=== PATIENT | male | born 1960 | race African-American/Black ===

== ENCOUNTER 2016-08-07 18:10 | Emergency (ER) | payer MEDICARE, OTHER ==
[~2016-08-07] VITALS: Ht 182.9 cm; Wt 91.0 kg
[~2016-08-07 18:10] MED LIST: DEPA500T; HALO0.5T; RISP3
[2016-08-07 18:13] VITALS: BP 130/80; PULSE 106; RESP 20; TEMP 97.8; O2SAT 95
== END 2016-08-07 18:50 | disposition left against medical advice (07) ==
LOC: NED 18:10
DX: F32.9 Major depressive disorder, single episode, unspecified (principal); Z53.21 Procedure and treatment not carried out due to patient leaving prior to being seen by health care provider
CPT/HCPCS: 99281

== ENCOUNTER 2016-08-25 16:55 | Inpatient (IN) | payer MEDICARE, OTHER ==
[~2016-08-25] VITALS: Ht 190.5 cm; Wt 83.5 kg
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
[2016-08-25 17:32] VITALS: BP 119/76; PULSE 86; RESP 16; TEMP 98.5; O2SAT 98
[2016-08-25 20:00] LABS: AUTOMATED NEUTROPHIL # 3.6 TH/MM3 (1.8-7.7); BASOPHIL # 0.1 TH/MM3 (0-0.2); BASOPHIL % 1.1 % (0.0-2.0); EOSINOPHIL # 0.2 TH/MM3 (0-0.4); EOSINOPHIL % 2.6 % (0.0-4.0); HEMATOCRIT 45.8 % (39.0-51.0); HEMO FLAGS DIFF FINAL; LYMPHOCYTE # 2.6 TH/MM3 (1.0-4.8); MEAN CELL VOLUME 94.7 FL (80.0-100.0); MEAN CORPUSCULAR HGB CONC 34.8 % (32.0-36.0); MONO % 8.1 % (0.0-8.0); NEUT % 51.2 % (16.0-70.0); PLATELET COUNT 261 TH/MM3 (150-450); RED BLOOD COUNT 4.83 MIL/MM3 (4.50-5.90); RED CELL DISTRIBUTION WIDTH 13.6 % (11.6-17.2); WHITE BLOOD COUNT 7.1 TH/MM3 (4.0-11.0)
[2016-08-25 20:00] LABS: AMPHETAMINE, URINE NEG (NEG); BARBITURATES, URINE NEG (NEG); COCAINE, URINE NEG (NEG)
[2016-08-25 20:08] LABS: ANION GAP 8 MEQ/L (5-15); AST (GOT) 21 U/L (15-37); BICARBONATE 25.9 MEQ/L (21.0-32.0); BLOOD UREA NITROGEN 18 MG/DL (7-18); CHLORIDE 105 MEQ/L (98-107); GLOMERULAR FILTRATION RATE 67 ML/MIN (>89); POTASSIUM 4.1 MEQ/L (3.5-5.1); SODIUM (NA) 139 MEQ/L (136-145)
[2016-08-25 20:11] LABS: ALKALINE PHOSPHATASE 86 U/L (45-117); ALT (GPT) 27 U/L (12-78); TOTAL BILIRUBIN ADULT 0.4 MG/DL (0.2-1.0)
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
[2016-08-25 22:33] VITALS: BP 115/60; PULSE 58; RESP 19; O2SAT 100
[2016-08-26 02:00] VITALS: RESP 19
[2016-08-26] MEDS ORDERED: diphenhydrAMINE HCL 50 MG/ML VIAL IM PRN (03:45)
[2016-08-26] MEDS ORDERED: LORazepam 2 MG/ML VIAL - age > 65 yrs IM PRN (03:45)
[2016-08-26] MEDS ORDERED: MAGNESIUM HYDROXIDE SUSP 30 ML CUP PO PRN (03:45)
[2016-08-26 05:28] VITALS: BP 112/61; PULSE 73; RESP 16; TEMP 98.1; O2SAT 99
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
[2016-08-26] MEDS: DIVALPROEX DR 500 MG TABEC PO SCH ×2 (11:46→19:53)
[2016-08-26] MEDS: risperiDONE 3 MG TAB PO SCH ×2 (11:46→19:53)
[2016-08-26 19:06] VITALS: BP 123/65; PULSE 88; RESP 18; TEMP 98.2; O2SAT 97
[2016-08-27 07:00] VITALS: BP 113/76; PULSE 80
[2016-08-27] MEDS: risperiDONE 3 MG TAB PO SCH ×2 (08:19→20:32)
[2016-08-27] MEDS: DIVALPROEX DR 500 MG TABEC PO SCH ×2 (08:19→20:32)
[2016-08-27 08:20] LABS: ANION GAP 7 MEQ/L (5-15); BICARBONATE 27.5 MEQ/L (21.0-32.0); BLOOD UREA NITROGEN 12 MG/DL (7-18); CHLORIDE 105 MEQ/L (98-107); GLOMERULAR FILTRATION RATE 84 ML/MIN (>89); HDL CHOLESTEROL 48.8 MG/DL (40.0-60.0); LDL CHOLESTEROL 81 MG/DL (0-99); POTASSIUM 4.8 MEQ/L (3.5-5.1); SODIUM (NA) 139 MEQ/L (136-145)
[2016-08-27] MEDS: ALUMINUM/MAGNESIUM/SIMETH 30 ML CUP PO PRN (08:50)
--- NOTE | 2016-08-27 11:57 | HHI.PYPN ---
Subjective Remarks Patient was seen and discussed with the staff nurse anesthetist. Sometimes patient becomes confused and paranoid and wants to be left alone or gets agitated but otherwise he is doing okay. He also wanted to smoke and I was advised that he cannot smoke I can give him some patch but he doesn't want the patch. No side effects were complained. He wants to go back to his mother. He is willing to sign voluntary and take the medication. Denied any suicidal and/or homicidal ideation or plan. Continue with the same treatment Review of Systems Except as stated in HPI: all other systems reviewed are Neg Psychiatric: COMPLAINS OF: Mood changes, Depression, Hallucinations, Delusions Objective Alert: Yes [place]: Person, Place Mood: Depressed Affect: Restricted Memory Intact: Recent (mildly impaired) Hallucinations: Auditory (occasionally talks to himself) Delusions: Yes Delusion Type: Paranoid Suicidal: Ideation (denies any suicidal ideation intentions or plan) Homicidal: Ideation (denies any homicidal plan) Insight/Judgement Limited Labs Test 08/27/16 07:14 Sodium Level 139 MEQ/L Potassium Level 4.8 MEQ/L Chloride Level 105 MEQ/L Carbon Dioxide Level 27.5 MEQ/L Anion Gap 7 MEQ/L Blood Urea Nitrogen 12 MG/DL Creatinine 1.10 MG/DL Estimat Glomerular Filtration 84 ML/MIN Rate Random Glucose 94 MG/DL Calcium Level 8.6 MG/DL Triglycerides Level 71 MG/DL Cholesterol Level 144 MG/DL LDL Cholesterol 81 MG/DL HDL Cholesterol 48.8 MG/DL Cholesterol/HDL Ratio 2.95 RATIO Vitals/IOs Vital Signs Date Time Temp Pulse Resp B/P Pulse Ox O2 Delivery O2 Flow Rate FiO2 08/27/16 07:00 80 113/76 08/26/16 19:06 98.2 18 97 08/26/16 02:00 Room Air Assessment & Plan Problem List: (1) Schizoaffective disorder ICD Code: F25.9 (2) schizophrenic disorder chronic paranoid type Assessment & Plan Estimated LOS: days Justification for Cont. Inpt. Monitoring of the medication and risk of decompensation Request HC Surrog/Guard Advoc?: No Problem Qualifiers (1) Schizoaffective disorder: Qualified Code: F25.8 - Other schizoaffective disorders Lyndon Tipton MD Aug 27, 2016 11:57
[2016-08-27 16:54] LABS: HEMOGLOBIN A1a 1.1 %; HEMOGLOBIN A1b 0.9 %; HEMOGLOBIN Ao 84.8 %; HEMOGLOBIN F 1.3 %; HEMOGLOBIN LA1C 1.9 %; HEMOGLOBIN P3 3.6 %
[2016-08-27 18:03] VITALS: BP 105/57; PULSE 83; RESP 18; TEMP 98.7; O2SAT 97
[2016-08-28 05:22] VITALS: BP 150/75; PULSE 120; RESP 18; TEMP 98.3; O2SAT 96
[2016-08-28] MEDS: risperiDONE 3 MG TAB PO SCH (08:41)
[2016-08-28] MEDS: DIVALPROEX DR 500 MG TABEC PO SCH ×2 (08:41→20:28)
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
[2016-08-28] MEDS ORDERED: LORazepam 2 MG TAB PO PRN (12:30)
[2016-08-28] MEDS ORDERED: LORazepam 1 MG TAB PO PRN (12:30)
[2016-08-28] MEDS ORDERED: LORazepam 2 MG/ML VIAL IV PUSH PRN ×4 (12:30)
[2016-08-28] MEDS ORDERED: FLUMAZENIL 0.5 MG/5 ML VIAL IV PUSH PRN (12:30)
[2016-08-28 18:14] VITALS: BP 142/70; PULSE 76; RESP 18; TEMP 98.1; O2SAT 98
[2016-08-28] MEDS: risperiDONE 1 MG TAB PO SCH (20:29)
[2016-08-29 05:47] VITALS: BP 111/64; PULSE 101; RESP 18; TEMP 98.2; O2SAT 97
[2016-08-29] MEDS: risperiDONE 1 MG TAB PO SCH ×2 (09:23→20:58)
[2016-08-29] MEDS: FOLIC ACID 1 MG TAB PO SCH (09:23)
[2016-08-29] MEDS: DIVALPROEX DR 500 MG TABEC PO SCH ×2 (09:23→20:57)
[2016-08-29] MEDS: THIAMINE HCL 100 MG TAB PO SCH (09:23)
[2016-08-29] MEDS: ALUMINUM/MAGNESIUM/SIMETH 30 ML CUP PO PRN ×2 (09:24→21:00)
--- NOTE | 2016-08-29 11:24 | HHI.PYPN ---
Subjective Remarks Patient seen and examined with counselor. Chart reviewed. Case discussed with counselor, nursing staff and occupational therapist in treatment team. Per nursing staff, patient has been no behavioral problem on the inpatient unit. On my examination today, the patient complains chiefly of calluses on the balls of both feet which he finds somewhat painful especially while walking. His thought process is a little disorganized and when asked about audiovisual hallucinations he insists that he is only "thinking aloud." Some random statements about "Gwen Patel" that don't seem connected with our conversation otherwise. Overall, quite calm and pleasant. Denies side effects from medications. Review of Systems ROS Limitations: Poor Historian Other Except as above, no physical complaints. Objective Alert: Yes [place]: Person, Place Mood: Calm Affect: Euthymic Memory Intact: Comment (not formally assessed) Hallucinations: Other (Denies AVH) Delusions: No Delusion Type: Other (No stephanie delusions.) Suicidal: Ideation (Denies SI) Homicidal: Ideation (Denies HI) Insight/Judgement Poor Remarks TP a little disorganized. Speech somewhat rambling. No new abnormal motor movements noted. Labs Labs reviewed. No new labs. Vitals/IOs Vital Signs Date Time Temp Pulse Resp B/P Pulse Ox O2 Delivery O2 Flow Rate FiO2 08/29/16 05:47 98.2 101 18 111/64 97 08/26/16 02:00 Room Air Assessment & Plan Problem List: (1) Schizophrenia ICD Code: F20.9 Assessment & Plan Continue Risperdal 4mg BID as patient seems to be doing well with this medication. Could consider Consta or Sustenna. Continue Depakote as ordered and plan to check a level Thursday morning. Consult to podiatry for patient's complaints about his feet. Continue other medications and care as ordered. Justification for Cont. Inpt. Monitoring for impairments in safety. Discharge Planning To be determined. Unlikely that patient can return home but unclear what other placement options there are. Also unclear is whether there are active legal issues related to his presentation that would present a barrier to alternative placement. I will ask the counselor to work on formulating discharge options. Request HC Surrog/Guard Advoc?: No Problem Qualifiers (1) Schizophrenia: Qualified Code: F20.0 - Paranoid schizophrenia Zach Valera MD Aug 29, 2016 11:24
--- NOTE | 2016-08-29 17:14 | PD.POD ---
Subjective Podiatric Problems calluses on feet Objective Vital Signs Vital Signs Date Time Temp Pulse Resp B/P Pulse Ox O2 Delivery O2 Flow Rate FiO2 08/29/16 05:47 98.2 101 18 111/64 97 08/28/16 18:14 98.1 76 18 142/70 98 Coded Allergies: No Known Allergies (Verified , 08/07/16) Assessment & Plan A/P These routine foot care issues are not emergent, and are not a service offered as an inpatient. Patient is welcome to follow up in our clinic as needed upon d/ c. Wilber Chavez DPM Aug 29, 2016 17:14
[2016-08-29 17:57] VITALS: BP 123/73; PULSE 110; RESP 18; TEMP 98.7; O2SAT 97
[2016-08-30 05:57] VITALS: BP 110/75; PULSE 87; RESP 18; TEMP 98.3; O2SAT 97
[2016-08-30] MEDS: FOLIC ACID 1 MG TAB PO SCH (08:46)
[2016-08-30] MEDS: risperiDONE 1 MG TAB PO SCH ×2 (08:46→20:51)
[2016-08-30] MEDS: DIVALPROEX DR 500 MG TABEC PO SCH ×2 (08:46→20:51)
[2016-08-30] MEDS: THIAMINE HCL 100 MG TAB PO SCH (08:46)
--- NOTE | 2016-08-30 15:40 | HHI.PYPN ---
Subjective Remarks Patient was seen and case discussed with nursing. Patient remains disheveled and flat. He is pleasant with interview. Compliant with his medications. Perseverative on painful calluses. Per nursing a podiatry consult is pending. Denies psychotic symptoms. Behaving well on the unit Objective Alert: Yes [place]: Person, Place Mood: Calm Affect: Blunted Memory Intact: Comment (not formally assessed) Hallucinations: Other (Denies AVH) Delusions: No Delusion Type: Other (No stephanie delusions.) Suicidal: Ideation (Denies SI) Homicidal: Ideation (Denies HI) Insight/Judgement Poor Vitals/IOs Vital Signs Date Time Temp Pulse Resp B/P Pulse Ox O2 Delivery O2 Flow Rate FiO2 08/30/16 05:57 98.3 87 18 110/75 97 Assessment & Plan Problem List: (1) Schizophrenia ICD Code: F20.9 Assessment & Plan Continue current treatment plan Justification for Cont. Inpt. Patient will decompensate in a less restrictive setting Request HC Surrog/Guard Advoc?: No Problem Qualifiers (1) Schizophrenia: Qualified Code: F20.0 - Paranoid schizophrenia Carlos Lombardi DO Aug 30, 2016 15:40
[2016-08-30 22:25] VITALS: BP 109/74; PULSE 97; RESP 19; TEMP 98; O2SAT 100
[2016-08-31 05:32] VITALS: BP 118/76; PULSE 100; RESP 18; TEMP 98.1; O2SAT 96
[2016-08-31] MEDS: ACETAMINOPHEN 325 MG TAB PO PRN ×2 (07:12→12:03)
[2016-08-31] MEDS: DIVALPROEX DR 500 MG TABEC PO SCH ×2 (08:58→21:15)
[2016-08-31] MEDS: FOLIC ACID 1 MG TAB PO SCH (08:58)
[2016-08-31] MEDS: risperiDONE 1 MG TAB PO SCH ×2 (08:58→21:15)
[2016-08-31] MEDS: THIAMINE HCL 100 MG TAB PO SCH (08:58)
--- NOTE | 2016-08-31 15:46 | HHI.PYPN ---
Subjective Remarks Patient was seen and case discussed with nursing. Patient is pleasant and cooperative with exam. He remains disheveled with poor insight into his admission. Largely seclusive to room. Nursing witnessed him with eyes closed talking to himself. Compliant with his medications. Continues to deny psychotic symptoms Objective Alert: Yes [place]: Person, Place Mood: Calm Affect: Flat Memory Intact: Comment (not formally assessed) Hallucinations: Other (Denies AVH) Delusions: No Delusion Type: Other (could be responding to internal stimuli) Suicidal: Ideation (Denies SI) Homicidal: Ideation (Denies HI) Insight/Judgement Poor Vitals/IOs Vital Signs Date Time Temp Pulse Resp B/P Pulse Ox O2 Delivery O2 Flow Rate FiO2 08/31/16 05:32 98.1 100 18 118/76 96 Assessment & Plan Problem List: (1) Schizophrenia ICD Code: F20.9 Assessment & Plan Continue current treatment plan Justification for Cont. Inpt. Patient will decompensate in a less restrictive setting Request HC Surrog/Guard Advoc?: No Problem Qualifiers (1) Schizophrenia: Qualified Code: F20.0 - Paranoid schizophrenia Carlos Lombardi DO Aug 31, 2016 15:46
[2016-08-31 19:04] VITALS: BP 114/69; PULSE 94; RESP 18; TEMP 97.4; O2SAT 100
[2016-09-01 06:29] VITALS: BP 128/75; PULSE 117; RESP 18; TEMP 97.9; O2SAT 96
[2016-09-01] MEDS: DIVALPROEX DR 500 MG TABEC PO SCH ×2 (09:00→20:07)
[2016-09-01] MEDS: FOLIC ACID 1 MG TAB PO SCH (09:42)
[2016-09-01] MEDS: THIAMINE HCL 100 MG TAB PO SCH (09:42)
[2016-09-01] MEDS: risperiDONE 1 MG TAB PO SCH ×2 (09:42→20:07)
--- NOTE | 2016-09-01 10:00 | HHI.PYPN ---
Subjective Remarks Patient seen and examined with nurse. Chart reviewed. Case discussed with nursing staff reports patient remains internally stimulated but has been no behavioral problem. On my examination today, the patient continues to complain of his somewhat painful calluses. I do see that the licensed reactor operator has recommended outpatient follow-up for this. He denies any audiovisual hallucinations but does indeed remain a little internally preoccupied. 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 I'm trying to make a living. 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 Review of Systems ROS Limitations: Psychotic, Poor Historian Other No physical complaints today except as above Objective Alert: Yes [place]: Person, Place Mood: Happy Affect: Blunted Memory Intact: Comment (not formally assessed) Hallucinations: Other (denies audiovisual hallucinations but does appear a little internally preoccupied) Delusions: No Delusion Type: Other (some degree of grandiosity) Suicidal: Ideation (Denies SI) Homicidal: Ideation (Denies HI) Insight/Judgement Poor Remarks Thought process fairly linear. Speech a little bit rambling though. No motor abnormalities noted. Grooming and hygiene are fair. Labs Test 09/01/16 08:48 Ammonia 19 MCMOL/L Valproic Acid (Depakene) Level 60 MCG/ML Labs reviewed. Depakote level is within the therapeutic range and ammonia level is not elevated. Vitals/IOs Vital Signs Date Time Temp Pulse Resp B/P Pulse Ox O2 Delivery O2 Flow Rate FiO2 09/01/16 06:29 97.9 117 18 128/75 96 Ongoing tachycardia noted. Assessment & Plan Problem List: (1) Schizophrenia ICD Code: F20.9 Assessment & Plan No evidence of ongoing violence/aggression despite extended observation on the unit. Check EKG given tachycardia. If EKG okay, plan to initiate Risperdal Consta. Patient says Epsom salt soak helps his feet, and I have ordered this. Continue other medications and care as ordered. Justification for Cont. Inpt. Monitoring for impairment in safety; none noted so far. Discharge Planning I have asked counselor to reach out to family to assess whether they would have him home. He might do better with placement if feasible. Request HC Surrog/Guard Advoc?: No Problem Qualifiers (1) Schizophrenia: Qualified Code: F20.0 - Paranoid schizophrenia Zach Valera MD Sep 01, 2016 10:00
[2016-09-01] MEDS: ACETAMINOPHEN 325 MG TAB PO PRN (17:05)
[2016-09-01 18:07] VITALS: BP 121/69; PULSE 89; RESP 18; TEMP 98.4; O2SAT 98
[2016-09-01 19:52] VITALS: BP 121/69; PULSE 89; RESP 18; TEMP 98.4; O2SAT 98
[2016-09-01] MEDS: LORazepam 0.5 MG TAB age > 65 yrs PO PRN (20:07)
[2016-09-02 05:33] VITALS: BP 115/73; PULSE 102; RESP 18; TEMP 98.1; O2SAT 97
[2016-09-02] MEDS: DIVALPROEX DR 500 MG TABEC PO SCH ×2 (08:24→21:00)
[2016-09-02] MEDS: FOLIC ACID 1 MG TAB PO SCH (08:24)
[2016-09-02] MEDS: risperiDONE 1 MG TAB PO SCH ×2 (08:25→21:04)
[2016-09-02] MEDS: THIAMINE HCL 100 MG TAB PO SCH (08:25)
--- NOTE | 2016-09-02 11:46 | HHI.PYPN ---
Subjective Remarks Patient seen and examined with nurse. Chart reviewed. Case discussed with nurse, counselor and occupational therapist in treatment team. Per nursing staff, patient completed a right of release this morning. He has been medication compliant. Counselors reach out the patient's family, and apparently the plan is to move the patient's mother, with whom he had been residing, [place] live [place] other family and to sell her house. This would render the patient otherwise homeless, and there are apparently no family prepared to assume care of his case in the area. Per occupational therapist, patient is attending groups. On my examination today, the patient is perseverative on being discharged. It seems that he wants to smoke cigarettes chiefly. He is fairly irritable, and when I endeavored to inquire about psychiatric symptomatology he merely reiterates that he wants to go home. No evident side effects from medications. Review of Systems ROS Limitations: Psychotic, Poor Historian Other No physical complaints Objective Alert: Yes [place]: Person, Place Mood: Oppositional Affect: Restricted (dysphoric) Memory Intact: Comment (not formally assessed) Hallucinations: Other (no reported AVH but still appears somewhat internally preoccupied) Delusions: No Delusion Type: Other (no stephanie delusional material) Suicidal: Ideation (no SI) Homicidal: Ideation (no HI) Insight/Judgement Poor Remarks Thought process with some ongoing degree of thought disorganization. Speech is perseverative on discharge is noted above. No abnormal motor movements noted. Grooming and hygiene are fair at best. No signs of any withdrawal. Labs Labs reviewed. No new labs. EKG was read as sinus rhythm with a QTC of 371 ms. Vitals/IOs Vital Signs Date Time Temp Pulse Resp B/P Pulse Ox O2 Delivery O2 Flow Rate FiO2 09/02/16 05:33 98.1 102 18 115/73 97 Assessment & Plan Problem List: (1) Schizophrenia ICD Code: F20.9 Assessment & Plan Patient is demanding discharge today and has completed a right of release. However, collateral from family indicates that the patient would be without stable housing on discharge. This is a chronic patient with schizophrenia with extremely poor executive functioning. I do not believe that it would be a safe discharge to discharge him to [facility] [place] [facility], which would be the option presently. I will therefore initiated a petition for involuntary psychiatric hospitalization and consult for second. I will initiate long-acting injectable Risperdal Consta and continue oral supplementation is recommended. Continue other medications and care as ordered. Justification for Cont. Inpt. High risk for decompensation in a less restrictive environment. Discharge Planning Pending outcome of [place] hearing, we may plan for assisted living placement. Request HC Surrog/Guard Advoc?: No Problem Qualifiers (1) Schizophrenia: Qualified Code: F20.0 - Paranoid schizophrenia Zach Valera MD Sep 02, 2016 11:46
[2016-09-02] MEDS: NICOTINE 14 MG/24 HR PATCH TD SCH (11:54)
[2016-09-02] MEDS: risperiDONE EXT REL INJ 12.5 MG/2 ML VIAL IM SCH (12:00)
--- NOTE | 2016-09-02 14:53 | EKG ---
Date Performed: 09/01/2016 Time Performed: 14:03:53 PTAGE: 55 years EKG: Sinus rhythm POSSIBLE RIGHT ATRIAL ENLARGEMENT POSSIBLE RIGHT VENTRICULAR CONDUCTION DELAY Compared to prior trac ing no significant change BORDERLINE ECG PREVIOUS TRACING : 01/01/2006 14.57 DOCTOR: Jean Claude Sims Interpretating Date/Time 09/02/2016 14:50:14
[2016-09-02 17:30] VITALS: BP 122/74; PULSE 88; RESP 18; TEMP 97.2; O2SAT 98
[2016-09-03 06:08] VITALS: BP 146/78; PULSE 112; RESP 18; TEMP 97.2; O2SAT 98
[2016-09-03] MEDS: DIVALPROEX DR 500 MG TABEC PO SCH ×2 (08:18→20:38)
[2016-09-03] MEDS: risperiDONE 1 MG TAB PO SCH ×2 (08:19→20:42)
[2016-09-03] MEDS: NICOTINE 14 MG/24 HR PATCH TD SCH (08:19)
[2016-09-03] MEDS: THIAMINE HCL 100 MG TAB PO SCH (08:19)
[2016-09-03] MEDS: LORazepam 0.5 MG TAB age > 65 yrs PO PRN (08:19)
[2016-09-03] MEDS: FOLIC ACID 1 MG TAB PO SCH (08:19)
[2016-09-03] MEDS: REMOVE OLD PATCH TD SCH (09:00)
--- NOTE | 2016-09-03 11:15 | HHI.PYPN ---
Subjective Remarks Patient seen and examined with nurse. Chart reviewed. Case discussed with nursing staff who reports patient remains somewhat disorganized but is compliant with medications. On my examination today, the patient is irritable. He insists that he is not experiencing audiovisual hallucinations although he does appear internally preoccupied. He he says that instead "I just think a lot." He is perseverative on soaking his feet. He says that he plans to file a writ of [place]. He has written a latin phrase, "rocio irritatus irritatum legem videt" and gives the translation as something like "the law doesn't see the irritating man." Unclear where he came by this phrase. Denies side effects from medications. Review of Systems ROS Limitations: Psychotic, Poor Historian Other No physical complaints today. Objective Alert: Yes [place]: Person, Place Mood: Other (irritated) Affect: Restricted (dysphoric) Memory Intact: Comment (not formally assessed) Hallucinations: Other (Denies AVH but continues to appear int stim) Delusions: No Delusion Type: Other (no stephanie delusional material) Suicidal: Ideation (no SI) Homicidal: Ideation (no HI) Insight/Judgement Poor Remarks No abnormal motor movements noted. Thought process perhaps a little more linear. Labs Labs reviewed. No new labs. Vitals/IOs Vital Signs Date Time Temp Pulse Resp B/P Pulse Ox O2 Delivery O2 Flow Rate FiO2 09/03/16 06:08 97.2 112 18 146/78 98 Assessment & Plan Problem List: (1) Schizophrenia ICD Code: F20.9 Assessment & Plan Patient to receive Risperdal Consta today. Continue oral Risperdal supplementation. Continue Depakote as ordered. Continue monitoring on the inpatient unit. Continue other medications and care as ordered. Justification for Cont. Inpt. Impairments in reality construction. Concern for impairments in safety. High risk for decompensation in a less restrictive environment. Discharge Planning Pending outcome a [place] tomorrow, patient will likely require placement. Optimistically, this would take 1-2 weeks to achieve. Request HC Surrog/Guard Advoc?: No Problem Qualifiers (1) Schizophrenia: Qualified Code: F20.0 - Paranoid schizophrenia Zach Valera MD Sep 03, 2016 11:15
[2016-09-03] MEDS: risperiDONE EXT REL INJ 12.5 MG/2 ML VIAL IM SCH (12:35)
[2016-09-04 05:30] VITALS: BP 140/55; PULSE 99; RESP 18; TEMP 98.8; O2SAT 98
[2016-09-04] MEDS: DIVALPROEX DR 500 MG TABEC PO SCH ×2 (07:56→20:28)
[2016-09-04] MEDS: THIAMINE HCL 100 MG TAB PO SCH (07:56)
[2016-09-04] MEDS: FOLIC ACID 1 MG TAB PO SCH (07:56)
[2016-09-04] MEDS: NICOTINE 14 MG/24 HR PATCH TD SCH (07:56)
[2016-09-04] MEDS: MAGNESIUM SULFATE TOPICAL PRN (07:57)
[2016-09-04] MEDS: risperiDONE 1 MG TAB PO SCH ×2 (07:57→20:28)
[2016-09-04] MEDS: REMOVE OLD PATCH TD SCH (09:00)
--- NOTE | 2016-09-04 11:34 | HHI.PYPN ---
Subjective Remarks Patient seen and examined. Chart reviewed. Case discussed with nursing staff who reports patient is more or less unchanged today. Nursing staff reports that they got the Epsom salt bath ready for the patient to soak his feet but the patient said that he didn't want to do so anymore. On my examination today , the patient asks to do precisely this first thing. He is somewhat rambling regarding a baby and somehow connects this to smoking. Makes some allusion to his girlfriend. Seems overall more disorganized today versus yesterday. No evidence side effects from medications though. Review of Systems ROS Limitations: Psychotic, Poor Historian Other No physical complaints today Objective Alert: Yes [place]: Person, Place Mood: Calm Affect: Blunted Memory Intact: Comment (not formally assessed) Hallucinations: Other (no AVH reported) Delusions: No Delusion Type: Other (no delusions) Suicidal: Ideation (no SI) Homicidal: Ideation (no HI) Insight/Judgement Poor Remarks Thought process disorganized. Speech rambling. No new abnormal motor movements noted. Labs Labs reviewed. No new labs. Vitals/IOs Vital Signs Date Time Temp Pulse Resp B/P Pulse Ox O2 Delivery O2 Flow Rate FiO2 09/04/16 05:30 98.8 99 18 140/55 98 Assessment & Plan Problem List: (1) Schizophrenia ICD Code: F20.9 Assessment & Plan Estimated LOS: days patient seems to be more disorganized today after a few days of improvement. Unclear if this is some day-to-day variation in the setting of a larger trajectory of improvement. I will hold off on making medication adjustments at this time, but if he remains so symptomatic tomorrow, we may need to consider additional psychotropic agents such as addition of a different antipsychotic. Continue to monitor on the inpatient unit. Continue other medications and care as ordered. Justification for Cont. Inpt. Impairment in reality construction. High risk for decompensation in a less restrictive environment. Discharge Planning Patient will likely require placement. Request HC Surrog/Guard Advoc?: No Problem Qualifiers (1) Schizophrenia: Qualified Code: F20.0 - Paranoid schizophrenia Zach Valera MD Sep 04, 2016 11:34
[2016-09-04] MEDS: ALUMINUM/MAGNESIUM/SIMETH 30 ML CUP PO PRN ×2 (12:52→18:22)
[2016-09-04 15:15] VITALS: BP 123/81; PULSE 88; RESP 18; TEMP 87.6; O2SAT 99
[2016-09-04] MEDS: LORazepam 0.5 MG TAB age > 65 yrs PO PRN (20:29)
[2016-09-04] MEDS: ACETAMINOPHEN 325 MG TAB PO PRN (20:30)
[2016-09-05 05:37] VITALS: BP 137/65; PULSE 91; RESP 18; TEMP 98.1; O2SAT 96
[2016-09-05] MEDS: risperiDONE 1 MG TAB PO SCH ×2 (07:31→20:13)
[2016-09-05] MEDS: FOLIC ACID 1 MG TAB PO SCH (07:32)
[2016-09-05] MEDS: THIAMINE HCL 100 MG TAB PO SCH (07:32)
[2016-09-05] MEDS: NICOTINE 14 MG/24 HR PATCH TD SCH (09:00)
[2016-09-05] MEDS: REMOVE OLD PATCH TD SCH (09:00)
[2016-09-05] MEDS: DIVALPROEX DR 500 MG TABEC PO SCH ×2 (09:00→20:13)
--- NOTE | 2016-09-05 10:19 | HHI.PYPN ---
Subjective Remarks Patient seen and examined with nurse. Chart reviewed. Case discussed with nursing staff who reports patient remains fairly disorganized and rambling. Patient's mother apparently called the unit yesterday but the patient refused to speak with her even though she was hoping to convey the news that some more distant relation had . On my examination today, the patient remains rambling and disorganized. He is discharge focused. He denies audiovisual hallucinations but appears internally preoccupied. He is fixated on being retained in the hospital after he had signed in voluntarily. I endeavored to explain to him the right of release and subsequent petition for involuntary psychiatric hospitalization, but his thought process is too disorganized to comprehend. 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 HMO. HMO you. 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 Review of Systems ROS Limitations: Psychotic, Poor Historian Other No physical complaints today. Objective Alert: Yes [place]: Person, Place Mood: Agitated, Anxious Affect: Restricted (dysphoric) Memory Intact: Comment (not formally assessed) Hallucinations: Other (Denies AVH but appears int stim) Delusions: Yes Delusion Type: Grandiose, Paranoid Suicidal: Ideation (none) Homicidal: Ideation (none) Insight/Judgement Poor Remarks Thought process disorganized. Speech rambling. No motor abnormalities noted. Nursing staff has brought to my attention some redness in the right eye, which I note on my examination today. Labs Labs reviewed. No new labs. Vitals/IOs Vital Signs Date Time Temp Pulse Resp B/P Pulse Ox O2 Delivery O2 Flow Rate FiO2 09/05/16 05:37 98.1 91 18 137/65 96 Assessment & Plan Problem List: (1) Schizophrenia ICD Code: F20.9 Assessment & Plan Patient once again presents as disorganized and more psychotic than he had in previous days. Covert med non-adherence is not suspected. Patient has received a low-dose of Consta, but I do wonder if he might not do better with a different antipsychotic. I will taper oral Risperdal slightly and add low-dose Zyprexa at HS. If patient seems improved, please consider continuing this cross -taper over the weekend. I will ask the hospitalist to evaluate pt's eye. Continue other medications and care as ordered. Justification for Cont. Inpt. Interval worsening in patient's condition. Impairment in reality construction. Medication changes in process. High risk for decompensation in a less restrictive environment. Discharge Planning Pending psychiatric stabilization. Plan presently is for placement pending outcome of [place] next week as the patient himself is resistant to the idea. Request HC Surrog/Guard Advoc?: No Problem Qualifiers (1) Schizophrenia: Qualified Code: F20.0 - Paranoid schizophrenia Zach Valera MD Sep 05, 2016 10:19
[2016-09-05 15:30] VITALS: BP 113/55; PULSE 70; RESP 16; TEMP 97.9; O2SAT 96
[2016-09-05] MEDS: OLANZapine 2.5 MG TAB PO SCH (20:13)
[2016-09-06 05:35] VITALS: BP 117/74; PULSE 100; RESP 18; TEMP 98.7; O2SAT 97
[2016-09-06] MEDS: DIVALPROEX DR 500 MG TABEC PO SCH ×2 (09:01→20:31)
[2016-09-06] MEDS: FOLIC ACID 1 MG TAB PO SCH (09:01)
[2016-09-06] MEDS: THIAMINE HCL 100 MG TAB PO SCH (09:01)
[2016-09-06] MEDS: risperiDONE 1 MG TAB PO SCH ×2 (09:01→20:31)
[2016-09-06] MEDS: ALUMINUM/MAGNESIUM/SIMETH 30 ML CUP PO PRN ×2 (09:02→21:31)
--- NOTE | 2016-09-06 16:34 | HHI.PYPN ---
Subjective Remarks Pt seen and discussed with staff. Pt remains disorganized and delusional. 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 Staff reports that pt has been engaging in bizarre behavior on unit. He states that he is feeling "Advantageous. I'm excelling!" when author inquired about his mood. He is compliant with medications. No SI/HI. Objective Alert: Yes [place]: Person, Place, Date ("thursday") Mood: Other (euphoric) Affect: Labile Memory Intact: Comment (not formally assessed) Hallucinations: Other (prominent internal stimulation.) Delusions: Yes Delusion Type: Grandiose, Paranoid Suicidal: Ideation (none) Homicidal: Ideation (none) Insight/Judgement poor Vitals/IOs Vital Signs Date Time Temp Pulse Resp B/P Pulse Ox O2 Delivery O2 Flow Rate FiO2 09/06/16 05:35 98.7 100 18 117/74 97 Assessment & Plan Problem List: (1) Schizophrenia ICD Code: F20.9 Assessment & Plan Continue current tx plan. Estimated LOS: days Justification for Cont. Inpt. impairments in reality construction and self care. Request HC Surrog/Guard Advoc?: No Problem Qualifiers (1) Schizophrenia: Qualified Code: F20.0 - Paranoid schizophrenia Parul Erazo MD Sep 06, 2016 16:33
[2016-09-06 17:30] VITALS: BP 109/70; PULSE 96; RESP 18; TEMP 98.5; O2SAT 96
[2016-09-06] MEDS: OLANZapine 2.5 MG TAB PO SCH (20:31)
[2016-09-07 05:41] VITALS: BP 144/80; PULSE 95; RESP 17; TEMP 98.7
[2016-09-07] MEDS: DIVALPROEX DR 500 MG TABEC PO SCH ×2 (09:36→20:33)
[2016-09-07] MEDS: THIAMINE HCL 100 MG TAB PO SCH (09:36)
[2016-09-07] MEDS: risperiDONE 1 MG TAB PO SCH ×2 (09:36→20:33)
[2016-09-07] MEDS: FOLIC ACID 1 MG TAB PO SCH (09:36)
--- NOTE | 2016-09-07 13:18 | HHI.PYPN ---
Subjective Remarks Pt seen and discussed with staff. Pt remains delusional and disorganized in behaviors and thought process. He is compliant with medications and denies side effects. No SI/HI. Objective Alert: Yes [place]: Person, Place, Date ("thursday") Mood: Calm Affect: Restricted Memory Intact: Comment (fair) Hallucinations: Other (prominent internal stimulation.) Delusions: Yes Delusion Type: Grandiose, Paranoid Suicidal: Ideation (none) Homicidal: Ideation (none) Insight/Judgement poor Remarks loose associations Vitals/IOs Vital Signs Date Time Temp Pulse Resp B/P Pulse Ox O2 Delivery O2 Flow Rate FiO2 09/07/16 05:41 98.7 95 17 144/80 09/06/16 17:30 96 Assessment & Plan Problem List: (1) Schizophrenia ICD Code: F20.9 Assessment & Plan Continue current tx plan. Estimated LOS: days Justification for Cont. Inpt. impairments in reality construction, self-care and social functioning Request HC Surrog/Guard Advoc?: No Problem Qualifiers (1) Schizophrenia: Qualified Code: F20.0 - Paranoid schizophrenia Parul Erazo MD Sep 07, 2016 13:18
[2016-09-07 17:13] VITALS: BP 118/73; PULSE 85; RESP 18; TEMP 98.5; O2SAT 99
[2016-09-07] MEDS: OLANZapine 2.5 MG TAB PO SCH (20:33)
[2016-09-07] MEDS: ALUMINUM/MAGNESIUM/SIMETH 30 ML CUP PO PRN (20:35)
[2016-09-07] MEDS: ACETAMINOPHEN 325 MG TAB PO PRN (20:35)
[2016-09-08 05:55] VITALS: BP 113/61; PULSE 80; RESP 18; TEMP 97.8; O2SAT 96
[2016-09-08] MEDS: THIAMINE HCL 100 MG TAB PO SCH (09:11)
[2016-09-08] MEDS: DIVALPROEX DR 500 MG TABEC PO SCH ×2 (09:11→20:55)
[2016-09-08] MEDS: risperiDONE 1 MG TAB PO SCH ×2 (09:12→20:55)
[2016-09-08] MEDS: FOLIC ACID 1 MG TAB PO SCH (09:12)
--- NOTE | 2016-09-08 12:26 | HHI.PYPN ---
Subjective Remarks Patient seen and examined with nurse. Chart reviewed. Case discussed with nurse, counselor an occupational therapist and groups. Per nursing staff, patient is rambling but pleasant. Occupational therapist notes the patient attended some groups but doesn't really socialize. On my examination today, patient presents as disorganized. From what I can gather, his foot pain has improved with the Epsom salt soaks I have ordered. He is now asking for " coffee and Mylanta for my heart murmur [perhaps he means heart burn?]." Denies side effects from medications. Calm and pleasant on exam. Review of Systems ROS Limitations: Poor Historian Other Except as above, no physical complaints today. Objective Alert: Yes [place]: Person, Place (at least) Mood: Calm Affect: Blunted Memory Intact: Comment (fair) Hallucinations: Other (Remains int stim) Delusions: Yes Delusion Type: Grandiose, Paranoid Suicidal: Ideation (No SI voiced) Homicidal: Ideation (No HI voiced) Insight/Judgement Poor Remarks Thought process disorganized. Speech rambling. No new motoric abnormalities noted. Grooming and hygiene are fair at best. Labs Labs reviewed. No new labs. Vitals/IOs Vital Signs Date Time Temp Pulse Resp B/P Pulse Ox O2 Delivery O2 Flow Rate FiO2 09/08/16 05:55 97.8 80 18 113/61 96 Assessment & Plan Problem List: (1) Schizophrenia ICD Code: F20.9 Assessment & Plan Continue cross taper of Risperdal to Zyprexa. Zyprexa 5 mg this evening and Risperdal 2 mg twice daily. Plan to continue cross taper in succeeding days as patient tolerates. Continue to monitor on the inpatient unit. Continue other medications and care as ordered. Justification for Cont. Inpt. Impairment in reality construction. Impairment in social function. Medication changes in process. High risk for decompensation in a less restrictive environment. Discharge Planning Likely will require placement pending outcome of [place]. Request HC Surrog/Guard Advoc?: No Problem Qualifiers (1) Schizophrenia: Qualified Code: F20.0 - Paranoid schizophrenia Zach Valera MD Sep 08, 2016 12:26
[2016-09-08] MEDS: MAGNESIUM SULFATE TOPICAL PRN (15:52)
[2016-09-08 17:50] VITALS: BP 135/69; PULSE 85; RESP 18; TEMP 98.2; O2SAT 98
[2016-09-08] MEDS: ALUMINUM/MAGNESIUM/SIMETH 30 ML CUP PO PRN (18:31)
[2016-09-08] MEDS: ACETAMINOPHEN 325 MG TAB PO PRN (20:56)
[2016-09-08] MEDS: diphenhydrAMINE HCL 50 MG CAP PO PRN (20:56)
[2016-09-08] MEDS: LORazepam 0.5 MG TAB age > 65 yrs PO PRN (20:56)
[2016-09-08] MEDS ORDERED: OLANZapine 2.5 MG TAB PO SCH (21:00)
[2016-09-09 05:43] VITALS: BP 123/70; PULSE 85; RESP 20; TEMP 98.6; O2SAT 95
[2016-09-09] MEDS: THIAMINE HCL 100 MG TAB PO SCH (08:32)
[2016-09-09] MEDS: risperiDONE 1 MG TAB PO SCH ×2 (08:32→20:17)
[2016-09-09] MEDS: FOLIC ACID 1 MG TAB PO SCH (08:32)
[2016-09-09] MEDS: DIVALPROEX DR 500 MG TABEC PO SCH ×2 (08:32→20:17)
--- NOTE | 2016-09-09 10:19 | HHI.PYPN ---
Subjective Remarks Patient seen and examined with nurse. Chart reviewed. Case discussed with nursing staff who reports patient is more or less unchanged. He remains internally stimulated per nurse. On my examination today, the patient denies AVH but does appear internally preoccupied. He says "I just think out loud." He is pleased that his foot pain is improved. Thought process remains disorganized. Mood is good. Denies side effects from medications. Says that medications are "excellent." Review of Systems ROS Limitations: Psychotic, Poor Historian Other No reported physical complaints. Objective Alert: Yes [place]: Person, Place Mood: Calm Affect: Euthymic Memory Intact: Comment (fair) Hallucinations: Other (internally preoccupied) Delusions: No Delusion Type: Other (no stephanie delusional material) Suicidal: Ideation (no SI) Homicidal: Ideation (no HI) Insight/Judgement Poor Remarks Thought process disorganized. Speech rambling. No new motoric abnormalities noted. Labs Labs reviewed. No new labs. Vitals/IOs Vital Signs Date Time Temp Pulse Resp B/P Pulse Ox O2 Delivery O2 Flow Rate FiO2 09/09/16 05:43 98.6 85 20 123/70 95 Assessment & Plan Problem List: (1) Schizophrenia ICD Code: F20.9 Assessment & Plan Titrate Zyprexa to 10 mg at bedtime. Continue Risperdal 2 mg twice daily with plans to continue to taper this medication as we titrate Zyprexa. Continue Depakote as ordered. Continue to monitor on the inpatient unit. Continue other medications and care as ordered. Justification for Cont. Inpt. Impairment in reality construction. Medication changes in process. High risk for decompensation in a less restrictive environment. Discharge Planning Pending outcome a [place]. Request HC Surrog/Guard Advoc?: No Problem Qualifiers (1) Schizophrenia: Qualified Code: F20.0 - Paranoid schizophrenia Zach Valera MD Sep 09, 2016 10:19
[2016-09-09] MEDS: MAGNESIUM SULFATE TOPICAL PRN (14:33)
[2016-09-09 17:20] VITALS: BP 172/100; PULSE 78
[2016-09-09 17:50] VITALS: BP 117/69; RESP 18; TEMP 98.6; O2SAT 100
[2016-09-09] MEDS ORDERED: OLANZapine 2.5 MG TAB PO SCH (21:00)
[2016-09-10 06:16] VITALS: BP 138/72; PULSE 85; RESP 18; TEMP 98; O2SAT 98
[2016-09-10] MEDS: DIVALPROEX DR 500 MG TABEC PO SCH ×2 (09:01→20:44)
[2016-09-10] MEDS: risperiDONE 1 MG TAB PO SCH ×2 (09:01→20:44)
[2016-09-10] MEDS: THIAMINE HCL 100 MG TAB PO SCH (09:01)
[2016-09-10] MEDS: FOLIC ACID 1 MG TAB PO SCH (09:01)
--- NOTE | 2016-09-10 09:53 | HHI.PYPN ---
Subjective Remarks Patient seen and examined with counselor. Chart reviewed. Case discussed with nursing staff who reports patient is medication compliant but disorganized. On my examination today, patient is calm and pleasant but does indeed remain disorganized and rambling in his speech. He remains somewhat internally preoccupied. He says that the medications are "working just excellent." Denies side effects from medications. Review of Systems ROS Limitations: Poor Historian Other No physical complaints today Objective Alert: Yes [place]: Person, Place Mood: Calm Affect: Euthymic Memory Intact: Comment (not formally assessed today) Hallucinations: Other (remains somewhat internally stimulated) Delusions: No Delusion Type: Other (no delusions) Suicidal: Ideation (no SI) Homicidal: Ideation (no HI) Insight/Judgement Poor Remarks Thought process somewhat disorganized. Speech a little rambling. No motor abnormalities noted. Labs Labs reviewed. No new labs. Vitals/IOs Vital Signs Date Time Temp Pulse Resp B/P Pulse Ox O2 Delivery O2 Flow Rate FiO2 09/10/16 06:16 98.0 85 18 138/72 98 Assessment & Plan Problem List: (1) Schizophrenia ICD Code: F20.9 Assessment & Plan Continue cross taper, Risperdal to Zyprexa. No definite benefit from Zyprexa noted yet. Continue to monitor on the inpatient unit. Continue other medications and care as ordered. Justification for Cont. Inpt. Medication changes in process. Risk for decompensation in a less restrictive environment. Discharge Planning Pending outcome a [place] tomorrow. Request HC Surrog/Guard Advoc?: No Problem Qualifiers (1) Schizophrenia: Qualified Code: F20.0 - Paranoid schizophrenia Zach Valera MD Sep 10, 2016 09:53
[2016-09-10] MEDS: ACETAMINOPHEN 325 MG TAB PO PRN (13:33)
[2016-09-10 18:18] VITALS: BP 119/65; PULSE 83; RESP 18; TEMP 98.5; O2SAT 83
[2016-09-10] MEDS: MAGNESIUM SULFATE TOPICAL PRN (18:24)
[2016-09-10] MEDS: ALUMINUM/MAGNESIUM/SIMETH 30 ML CUP PO PRN (20:45)
[2016-09-11] MEDS: ACETAMINOPHEN 325 MG TAB PO PRN ×3 (03:56→20:48)
[2016-09-11 05:54] VITALS: BP 124/57; PULSE 99; RESP 18; TEMP 98.4; O2SAT 96
[2016-09-11] MEDS: ALUMINUM/MAGNESIUM/SIMETH 30 ML CUP PO PRN ×2 (08:34→20:48)
[2016-09-11] MEDS: DIVALPROEX DR 500 MG TABEC PO SCH ×2 (08:45→20:45)
[2016-09-11] MEDS: risperiDONE 1 MG TAB PO SCH (08:45)
[2016-09-11] MEDS: FOLIC ACID 1 MG TAB PO SCH (08:45)
[2016-09-11] MEDS: THIAMINE HCL 100 MG TAB PO SCH (08:45)
[2016-09-11] MEDS: LORazepam 0.5 MG TAB age > 65 yrs PO PRN (11:14)
--- NOTE | 2016-09-11 13:47 | HHI.PYPN ---
Subjective Remarks Patient seen and case discussed with nursing staff. Per nursing staff, patient has poor eye contact and his sleep is poor. 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 He says that he has to be discharged because he needs to "get a 9-to-5 job." No reported side effects from medications. Review of Systems ROS Limitations: Psychotic, Poor Historian Other No physical complaints today Objective Alert: Yes [place]: Person, Place Mood: Calm Affect: Euthymic Memory Intact: Comment (Not assessed) Hallucinations: Other (Int stim) Delusions: Yes Delusion Type: Grandiose Suicidal: Ideation (no SI) Homicidal: Ideation (no HI) Insight/Judgement Poor Remarks Grooming and hygiene fair. Labs Labs reviewed. No new labs. Vitals/IOs Vital Signs Date Time Temp Pulse Resp B/P Pulse Ox O2 Delivery O2 Flow Rate FiO2 09/11/16 05:54 98.4 99 18 124/57 96 Assessment & Plan Problem List: (1) Schizophrenia ICD Code: F20.9 Assessment & Plan Complete cross-taper of Risperdal to Zyprexa: D/c Risperdal and titrate Zyprexa to 20mg qHS. Continue Depakote as ordered. Continue to monitor on the inpatient unit. Continue other medications and care as ordered. Patient was presented to the [place] act court and was retained by the court. Justification for Cont. Inpt. Impairment in reality construction. Medication changes. High risk for decompensation in a less restrictive environment. Discharge Planning The patient having been retained by the court, the plan will now be for placement. Case discussed with counselor. Request HC Surrog/Guard Advoc?: No Problem Qualifiers (1) Schizophrenia: Qualified Code: F20.0 - Paranoid schizophrenia Zach Valera MD Sep 11, 2016 13:47
[2016-09-11 17:25] VITALS: BP 116/69; PULSE 77; RESP 16; TEMP 98.3; O2SAT 100
[2016-09-11] MEDS: OLANZapine 10 MG TAB PO SCH (20:45)
[2016-09-12 06:12] VITALS: BP 112/66; PULSE 66; RESP 18; TEMP 97.9; O2SAT 99
[2016-09-12] MEDS: DIVALPROEX DR 500 MG TABEC PO SCH ×2 (08:59→20:49)
[2016-09-12] MEDS: FOLIC ACID 1 MG TAB PO SCH (08:59)
[2016-09-12] MEDS: ALUMINUM/MAGNESIUM/SIMETH 30 ML CUP PO PRN (08:59)
[2016-09-12] MEDS: THIAMINE HCL 100 MG TAB PO SCH (08:59)
--- NOTE | 2016-09-12 11:03 | HHI.PYPN ---
Subjective Remarks Remains grossly psychotic and unable to appreciate the nature of his psychosis. It is found talking to himself and obviously responding to internal stimuli. Review of Systems ROS Limitations: Clinical Condition Except as stated in HPI: all other systems reviewed are Neg Objective Alert: Yes [place]: Person, Place Mood: Anxious Affect: Restricted Memory Intact: Comment (Not assessed) Hallucinations: Other (Int stim) Delusions: Yes Delusion Type: Paranoid Suicidal: Ideation (no SI) Homicidal: Ideation (no HI) Insight/Judgement Markedly impaired. Vitals/IOs Vital Signs Date Time Temp Pulse Resp B/P Pulse Ox O2 Delivery O2 Flow Rate FiO2 09/12/16 06:12 97.9 66 18 112/66 99 Assessment & Plan Problem List: (1) Schizophrenia ICD Code: F20.9 Assessment & Plan Estimated LOS: 7 days medications are minimally effective thus far. Will evaluate for antipsychotic medication titration. Patient remains unable to care for himself Justification for Cont. Inpt. Unable to care for self. Request HC Surrog/Guard Advoc?: No Problem Qualifiers (1) Schizophrenia: Qualified Code: F20.0 - Paranoid schizophrenia Josue Moore MD Sep 12, 2016 11:03
[2016-09-12] MEDS: diphenhydrAMINE HCL 50 MG CAP PO PRN ×2 (13:48→19:58)
[2016-09-12] MEDS: LORazepam 0.5 MG TAB age > 65 yrs PO PRN (13:48)
[2016-09-12] MEDS: ACETAMINOPHEN 325 MG TAB PO PRN ×3 (17:00→23:22)
[2016-09-12 17:27] VITALS: BP 144/56; PULSE 86; RESP 18; TEMP 97.3; O2SAT 99
[2016-09-12] MEDS: OLANZapine 10 MG TAB PO SCH (20:49)
[2016-09-13] MEDS: diphenhydrAMINE HCL 50 MG CAP PO PRN ×2 (03:07→21:00)
[2016-09-13] MEDS: LORazepam 0.5 MG TAB age > 65 yrs PO PRN (03:08)
[2016-09-13] MEDS: ACETAMINOPHEN 325 MG TAB PO PRN ×3 (03:08→18:29)
[2016-09-13 06:02] VITALS: BP 128/75; PULSE 67; RESP 17; TEMP 97.8; O2SAT 98
[2016-09-13] MEDS: DIVALPROEX DR 500 MG TABEC PO SCH ×2 (08:33→20:19)
[2016-09-13] MEDS: FOLIC ACID 1 MG TAB PO SCH (08:33)
[2016-09-13] MEDS: THIAMINE HCL 100 MG TAB PO SCH (08:33)
--- NOTE | 2016-09-13 18:00 | HHI.PYPN ---
Subjective Remarks Patient was seen and case discussed with nursing. Patient continues to ramble to himself. Loose associations. Poor sleep per nursing. He is pleasant and cooperative with exam. Has not been agitated. Compliant with medications. Poor insight Objective Alert: Yes [place]: Person, Place Mood: Calm Affect: Blunted Memory Intact: Comment (Not assessed) Hallucinations: Other (Int stim) Delusions: Yes Delusion Type: Paranoid (improving) Suicidal: Ideation (no SI) Homicidal: Ideation (no HI) Insight/Judgement Poor Vitals/IOs Vital Signs Date Time Temp Pulse Resp B/P Pulse Ox O2 Delivery O2 Flow Rate FiO2 09/13/16 06:02 97.8 67 17 128/75 98 Manual Cuff/Auscultation Assessment & Plan Problem List: (1) Schizophrenia ICD Code: F20.9 Assessment & Plan Continue current treatment plan Justification for Cont. Inpt. Patient will decompensate in a less restrictive setting Request HC Surrog/Guard Advoc?: No Problem Qualifiers (1) Schizophrenia: Qualified Code: F20.0 - Paranoid schizophrenia Carlos Lombardi DO Sep 13, 2016 18:00
[2016-09-13 19:01] VITALS: BP 101/75; PULSE 90; RESP 17; TEMP 97.4; O2SAT 98
[2016-09-13] MEDS: SULFACETAMIDE SODIUM 10% OPTH SOLN 15 ML BTL RIGHT EYE SCH (20:00)
[2016-09-13] MEDS: OLANZapine 10 MG TAB PO SCH (20:19)
[2016-09-14] MEDS: ACETAMINOPHEN 325 MG TAB PO PRN ×3 (02:52→23:26)
[2016-09-14] MEDS: SULFACETAMIDE SODIUM 10% OPTH SOLN 15 ML BTL RIGHT EYE SCH ×7 (04:00→23:25)
[2016-09-14 05:40] VITALS: BP 127/79; PULSE 94; RESP 18; TEMP 97.9; O2SAT 96
[2016-09-14] MEDS: DIVALPROEX DR 500 MG TABEC PO SCH ×2 (08:51→21:00)
[2016-09-14] MEDS: THIAMINE HCL 100 MG TAB PO SCH (08:51)
[2016-09-14] MEDS: FOLIC ACID 1 MG TAB PO SCH (08:51)
--- NOTE | 2016-09-14 15:09 | HHI.PYPN ---
Subjective Remarks Patient was seen and case discussed with nursing. Patient remains disheveled and hyperactive. Per nursing is been more anxious and is talking to himself. Continues to have very poor insight denying his psychotic symptoms. 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 Continues to have worsening tooth pain and is perseverative with that during the interview Objective Alert: Yes [place]: Person Mood: Anxious Affect: Labile Memory Intact: Comment (Not assessed) Hallucinations: Other (Int stim) Delusions: Yes Delusion Type: Paranoid (symptomatic) Suicidal: Ideation (no SI) Homicidal: Ideation (no HI) Insight/Judgement Poor Vitals/IOs Vital Signs Date Time Temp Pulse Resp B/P Pulse Ox O2 Delivery O2 Flow Rate FiO2 09/14/16 05:40 97.9 94 18 127/79 96 Assessment & Plan Problem List: (1) Schizophrenia ICD Code: F20.9 Assessment & Plan Consult medicine to rule out abscess Justification for Cont. Inpt. Patient will decompensate in a less restrictive setting Request HC Surrog/Guard Advoc?: No Problem Qualifiers (1) Schizophrenia: Qualified Code: F20.0 - Paranoid schizophrenia Carlos Lombardi DO Sep 14, 2016 15:09
[2016-09-14 18:07] VITALS: BP 133/74; PULSE 81; RESP 18; TEMP 98.5; O2SAT 97
[2016-09-14] MEDS: OLANZapine 10 MG TAB PO SCH (21:00)
[2016-09-14] MEDS: LORazepam 0.5 MG TAB age > 65 yrs PO PRN (23:26)
[2016-09-15] MEDS: SULFACETAMIDE SODIUM 10% OPTH SOLN 15 ML BTL RIGHT EYE SCH ×5 (04:00→20:24)
[2016-09-15 05:54] VITALS: BP 141/79; PULSE 77; RESP 18; TEMP 98.2; O2SAT 77; O2SAT 96
[2016-09-15 06:00] VITALS: O2SAT 96
[2016-09-15] MEDS: DIVALPROEX DR 500 MG TABEC PO SCH ×2 (09:00→20:23)
[2016-09-15] MEDS: THIAMINE HCL 100 MG TAB PO SCH (09:00)
[2016-09-15] MEDS: FOLIC ACID 1 MG TAB PO SCH (09:00)
[2016-09-15] MEDS: ACETAMINOPHEN 325 MG TAB PO PRN (09:01)
--- NOTE | 2016-09-15 10:20 | HHI.PYPN ---
Subjective Remarks Patient seen and examined. Chart reviewed. Case discussed with nursing staff who reports patient has been sleeping poorly and complaining of some tooth pain for which a hospitalist consultation was ordered over the weekend. On my examination today, the patient presents with rambling, somewhat pressured speech. Thought process is somewhat disorganized. He tells me that he wants to , "keep the same prognosis that you had before." Denies side effects from medications. Review of Systems ROS Limitations: Poor Historian Other Dental pain. Otherwise no complaints. Objective Alert: Yes [place]: Person, Place Mood: Anxious Affect: Blunted Memory Intact: Comment (Not formally assessed) Hallucinations: Other (Remains somewhat int stim) Delusions: Yes Delusion Type: Grandiose Suicidal: Ideation (no SI) Homicidal: Ideation (no HI) Insight/Judgement Poor Remarks Speech somewhat rambling and pressured as above. No motor abnormalities noted. Grooming and hygiene fair. Labs Labs reviewed. No new labs. Vitals/IOs Vital Signs Date Time Temp Pulse Resp B/P Pulse Ox O2 Delivery O2 Flow Rate FiO2 09/15/16 06:00 96 09/15/16 05:54 98.2 77 18 141/79 Assessment & Plan Problem List: (1) Schizophrenia ICD Code: F20.9 Assessment & Plan Continue Zyprexa 20mg qHS for psychosis. Continue Depakote. Continue to monitor on inpatient unit. Hospitalist consultation noted and appreciated. Continue other medications and care as ordered. Justification for Cont. Inpt. High risk for decompensation in a less restrictive environment. Some ongoing impairments in reality construction. Discharge Planning Placement. Request HC Surrog/Guard Advoc?: No Problem Qualifiers (1) Schizophrenia: Qualified Code: F20.0 - Paranoid schizophrenia Zach Valera MD Sep 15, 2016 10:20
--- NOTE | 2016-09-15 13:21 | PD.CONS ---
HPI [facility] Consult Requested By [facility]iatric services Reason for Consult Tooth pain and eye erythema Primary Care Physician Radha Bear MD Diagnoses: History of Present Illness This is a 55-year-old male patient with past medical history which includes GERD, arthritis, paranoid schizophrenia. Patient seen today inpatient psychiatric center. We've been consulted for assistance with management of tooth pain and eye erythema. Patient reports he has pain in his right lower tooth which has been present for approximately one month. Patient describes the pain as an intermittent throbbing sensation with radiation to the right side of his face up into the top of his head. Patient reports the tooth pain does not affect his ability to eat/chew. Patient denies fevers chills nausea vomiting diarrhea constipation shortness of breath or chest pain. Patient reports he had redness in his right eye which has since resolved. Patient denies vision changes or itching of the eye. Review of Systems ROS Limitations: Poor Historian Except as stated in HPI: all other systems reviewed are Neg Past Family Social History Allergies: Coded Allergies: No Known Allergies (Verified , 08/07/16) Past Medical History GERD, arthritis, paranoid schizophrenia Past Surgical History Denies prior surgeries Reported Medications Active Prescriptions or Reported Medications Unobtainable Active Ordered Medications Current Medications Medications (Trade) Dose Ordered Sig/Isaac Route Start Time Stop Time Status Last Admin (Ativan) 0.5 mg Q12H PRN PO 08/26/16 03:45 09/14/16 23:26 (Ativan Inj) 0.5 mg Q12H PRN IM 08/26/16 03:45 (Benadryl) 50 mg Q6H PRN PO 08/26/16 03:45 09/13/16 21:00 (Benadryl Inj) 50 mg Q6H PRN IM 08/26/16 03:45 (Tylenol) 650 mg Q4H PRN PO 08/26/16 03:45 09/15/16 09:01 (Milk Of Magnesia Liq) 30 ml DAILY PRN PO 08/26/16 03:45 (Mag-Al Plus Susp Liq) 30 ml Q6H PRN PO 08/26/16 03:45 09/12/16 08:59 (Depakote Dr) 500 mg BID PO 08/26/16 10:00 09/15/16 09:00 (Vitamin B1) 100 mg DAILY PO 08/29/16 09:00 09/15/16 09:00 (Folate) 1 mg DAILY PO 08/29/16 09:00 09/15/16 09:00 (Epsom Salt) 120 gm DAILY PRN TOPICAL 09/01/16 12:15 09/10/16 18:24 (ZyPREXA) 20 mg HS PO 09/11/16 21:00 09/14/16 21:00 (Bleph-10 Opth Soln) 1 drop Q4HR RIGHT EYE 09/13/16 20:00 09/15/16 08:00 Family History Patient denies family medical history including diabetes hypertension and CAD or cancer Social History Patient reports he smokes 1.5 packs of cigarettes per day Physical Exam Vital Signs Vital Signs Date Time Temp Pulse Resp B/P Pulse Ox O2 Delivery O2 Flow Rate FiO2 09/15/16 06:00 96 09/15/16 05:54 98.2 77 18 141/79 77 09/14/16 18:07 98.5 81 18 133/74 97 Physical Exam GENERAL: This is a thin 55-year-old male patient SKIN: No rashes, ecchymoses or lesions. Cool and dry. HEAD: Atraumatic. Normocephalic. No temporal or scalp tenderness. EYES: Extraocular motions intact. No scleral icterus. No injection or drainage. ENT: Nose without bleeding, purulent drainage or septal hematoma. Throat without erythema, tonsillar hypertrophy or exudate. Uvula midline. Airway patent. ORAL CAVITY: multiple extensive dental caries with most teeth brought into the gumline. No drainage or pus noted NECK: Trachea midline. No JVD or lymphadenopathy. Supple, nontender, no meningeal signs. CARDIOVASCULAR: Regular rate and rhythm without murmurs, gallops, or rubs. RESPIRATORY: Clear to auscultation. Breath sounds equal bilaterally. No wheezes , rales, or rhonchi. GASTROINTESTINAL: Abdomen soft, non-tender, nondistended. No hepato-splenomegaly , or palpable masses. No guarding. MUSCULOSKELETAL: Extremities without clubbing, cyanosis, or edema. No joint tenderness, effusion, or edema noted. No calf tenderness. Negative Homans sign bilaterally. NEUROLOGICAL: Awake and alert. No focal deficits identified. Motor and sensory grossly within normal limits. Five out of 5 muscle strength in all muscle groups. Assessment and Plan Assessment and Plan This is a 55-year-old male patient with past medical history which includes GERD, arthritis, paranoid schizophrenia. Patient seen today inpatient psychiatric center. We've been consulted for assistance with management of tooth pain and eye erythema. Patient reports he has pain in his right lower tooth which has been present for approximately one month. Paranoid Schizophrenia management per psychiatric team Multiple dental caries with pain Discussed with patient the need to follow-up with dentist as well as possible oral surgeon after discharge Unfortunately those services are not available at the hospital Continue Tylenol as needed for pain will add ibuprofen as needed eye erythema- resolved DVT prophylaxis patient is ambulatory and low risk Thank you for the consultation patient appears medically stable at this point will sign off. If patient's condition changes or further assistance is needed please reconsult Discussed with patient as well as nursing Written by Livia Lozano, acting as scribe for Dr. Sebastian on 09/15/16 at 13:18. All or portions of this note were transcribed by scribe [Livia Lozano PA-C]. I, Dr. Betty Sebastian personally performed the history, physical exam, and medical decision making; and confirmed the accuracy of the information in the transcribed note. Authenticated by Dr. Betty Sebastian on 09/15/16 at 15:17. Livia Lozano Sep 15, 2016 13:21 Betty Sebastian MD Sep 15, 2016 15:17
[2016-09-15] MEDS: IBUPROFEN 400 MG TAB PO PRN (15:47)
[2016-09-15 17:53] VITALS: BP 153/96; PULSE 85; RESP 16; TEMP 98.7; O2SAT 96
[2016-09-15] MEDS: OLANZapine 10 MG TAB PO SCH (20:23)
[2016-09-15] MEDS: LORazepam 0.5 MG TAB age > 65 yrs PO PRN (20:23)
[2016-09-16] MEDS: SULFACETAMIDE SODIUM 10% OPTH SOLN 15 ML BTL RIGHT EYE SCH ×6 (03:25→20:00)
[2016-09-16] MEDS: ALUMINUM/MAGNESIUM/SIMETH 30 ML CUP PO PRN (03:43)
[2016-09-16 05:54] VITALS: BP 113/71; PULSE 64; RESP 18; TEMP 97.3; O2SAT 99
[2016-09-16] MEDS: THIAMINE HCL 100 MG TAB PO SCH (08:58)
[2016-09-16] MEDS: FOLIC ACID 1 MG TAB PO SCH (08:58)
[2016-09-16] MEDS: DIVALPROEX DR 500 MG TABEC PO SCH ×2 (08:58→20:02)
[2016-09-16] MEDS: IBUPROFEN 400 MG TAB PO PRN ×2 (08:59→23:31)
--- NOTE | 2016-09-16 13:02 | HHI.PYPN ---
Subjective Remarks Patient seen and examined. Chart reviewed. Case discussed with nurse, counselor and recreation therapist in treatment team. Nurse reports patient has been no behavioral problem. On my examination today, I find the patient in his room. I see that he has continued his writings. One paper says, "Yakov looks up to Manpreet Pena." I ask him what this means and patient replies, "That's Latin. Yakov gets up to run. That's a run. Ephraim Jean. Pepe turcios." Thought process remains somewhat disorganized. Denies side effects from medications. Review of Systems ROS Limitations: Poor Historian Other No physical complaints today. Objective Alert: Yes [place]: Person, Place Mood: Calm Affect: Euthymic Memory Intact: Comment (Not formally assessed) Hallucinations: Other (Remains internally preoccupied) Delusions: No Delusion Type: Other (No stephanie delusions elicited today.) Suicidal: Ideation (no SI) Homicidal: Ideation (no HI) Insight/Judgement Poor Remarks Thought process disorganized. Grooming and hygiene fair. Labs Labs reviewed. No new labs. Vitals/IOs Vital Signs Date Time Temp Pulse Resp B/P Pulse Ox O2 Delivery O2 Flow Rate FiO2 09/16/16 05:54 97.3 64 18 113/71 99 Assessment & Plan Problem List: (1) Schizophrenia ICD Code: F20.9 Assessment & Plan Continue Zyprexa and Depakote as ordered. I would like to give the Zyprexa more time to show some efficacy, but barring some further clinical improvement, we may need to consider yet another antipsychotic trial as the patient remains fairly symptomatic. Continue to monitor on the inpatient unit. Continue other medications and care as ordered. Justification for Cont. Inpt. Impairment in reality construction. High risk for decompensation in a less restrictive environment. Discharge Planning Plan is for placement. Request HC Surrog/Guard Advoc?: No Problem Qualifiers (1) Schizophrenia: Qualified Code: F20.0 - Paranoid schizophrenia Zach Valera MD Sep 16, 2016 13:02
[2016-09-16 18:08] VITALS: BP 110/61; PULSE 77; RESP 18; TEMP 98.1; O2SAT 99
[2016-09-16] MEDS: OLANZapine 10 MG TAB PO SCH (20:02)
[2016-09-16] MEDS: diphenhydrAMINE HCL 50 MG CAP PO PRN (20:03)
[2016-09-16] MEDS: ACETAMINOPHEN 325 MG TAB PO PRN (20:03)
[2016-09-16] MEDS: LORazepam 0.5 MG TAB age > 65 yrs PO PRN (23:31)
[2016-09-17] MEDS: SULFACETAMIDE SODIUM 10% OPTH SOLN 15 ML BTL RIGHT EYE SCH ×6 (04:00→20:22)
[2016-09-17 06:16] VITALS: BP 114/68; PULSE 91; RESP 18; TEMP 97.6; O2SAT 93
[2016-09-17] MEDS: THIAMINE HCL 100 MG TAB PO SCH (09:30)
[2016-09-17] MEDS: DIVALPROEX DR 500 MG TABEC PO SCH ×2 (09:32→20:23)
[2016-09-17] MEDS: FOLIC ACID 1 MG TAB PO SCH (09:35)
--- NOTE | 2016-09-17 10:47 | HHI.PYPN ---
Subjective Remarks Patient seen and examined with counselor. Chart reviewed. Case discussed with counselor and nursing staff. Per nursing staff, patient is unchanged. He remains internally preoccupied and rambling. On my examination today, the patient is somewhat more irritable and dysphoric. Counselors as this may in part be due to the fact that counselor as discussed with patient his placement options, and while the patient has agreed to pursue [facility] placement, he is not particularly happy about the idea. The patient says "can I go home? My kids need to go to the dentist. I need to go home. I'm the breadwinner." Remains int stim. Denies side effects from medications. Review of Systems ROS Limitations: Psychotic, Poor Historian Except as stated in HPI: all other systems reviewed are Neg Objective Alert: Yes [place]: Person, Place (at least) Mood: Other (More dysphoric today) Affect: Restricted Memory Intact: Comment (Not formally assessed) Hallucinations: Other (Int stim) Delusions: Yes Delusion Type: Paranoid Suicidal: Ideation (no SI) Homicidal: Ideation (no HI) Insight/Judgement Poor Remarks TP perseverative on discharge. Labs Labs reviewed. No new labs. Vitals/IOs Vital Signs Date Time Temp Pulse Resp B/P Pulse Ox O2 Delivery O2 Flow Rate FiO2 09/17/16 06:16 97.6 91 18 114/68 93 Assessment & Plan Problem List: (1) Schizophrenia ICD Code: F20.9 Assessment & Plan Continue Zyprexa and Depakote as ordered. As noted previously, to consider further antipsychotic trials, although this may represent something close to patient's psychiatric baseline. Continue to monitor on the inpatient unit. Continue other medications and care as ordered. Justification for Cont. Inpt. Impairment in reality construction. High risk for decompensation in a less restrictive setting. Discharge Planning Placement. Case discussed with counselor. Request HC Surrog/Guard Advoc?: No Problem Qualifiers (1) Schizophrenia: Qualified Code: F20.0 - Paranoid schizophrenia Zach Valera MD Sep 17, 2016 10:47
[2016-09-17] MEDS: IBUPROFEN 400 MG TAB PO PRN (13:08)
[2016-09-17 18:38] VITALS: BP 125/72; PULSE 78; RESP 17; TEMP 98.6; O2SAT 98
[2016-09-17] MEDS: OLANZapine 10 MG TAB PO SCH (20:22)
[2016-09-18] MEDS: SULFACETAMIDE SODIUM 10% OPTH SOLN 15 ML BTL RIGHT EYE SCH ×6 (04:12→20:00)
[2016-09-18 06:11] VITALS: BP 110/70; PULSE 59; RESP 18; TEMP 97.7; O2SAT 99
[2016-09-18] MEDS: DIVALPROEX DR 500 MG TABEC PO SCH ×2 (09:00→21:32)
[2016-09-18] MEDS: THIAMINE HCL 100 MG TAB PO SCH (09:02)
[2016-09-18] MEDS: FOLIC ACID 1 MG TAB PO SCH (09:02)
--- NOTE | 2016-09-18 12:06 | HHI.PYPN ---
Subjective Remarks Patient seen and examined. Chart reviewed. Case discussed with nursing staff reports patient is unchanged today. On my examination today, the patient denies any SI or HI. He insists that he has to go home because he is the breadwinner for his family. He is calm and pleasant. Denies side effects from medications. Review of Systems ROS Limitations: Poor Historian Except as stated in HPI: all other systems reviewed are Neg Objective Alert: Yes [place]: Person, Place Mood: Calm Affect: Blunted Memory Intact: Comment (Not formally assessed) Hallucinations: Other (remains somewhat internally stimulated) Delusions: Yes Delusion Type: Paranoid Suicidal: Ideation (no SI) Homicidal: Ideation (no HI) Insight/Judgement Poor Remarks No new abnormal motor movements noted. Thought process remains somewhat disorganized. Speech rambling. Labs Labs reviewed. No new labs. Vitals/IOs Vital Signs Date Time Temp Pulse Resp B/P Pulse Ox O2 Delivery O2 Flow Rate FiO2 09/18/16 06:11 97.7 59 18 110/70 99 Intake and Output 09/17/16 09/17/16 09/18/16 08:00 16:00 00:00 Intake Total 720 ml Balance 720 ml Assessment & Plan Problem List: (1) Schizophrenia ICD Code: F20.9 Assessment & Plan Patient with ongoing disorganization and internal stimulation despite 1 week of Zyprexa 20mg qHS. Previously this admission had inadequate response to Risperdal. Given inadequate response to 2 atypicals, I will add low-dose typical to augment the Zyprexa. Add Haldol 2mg PO BID. Continue to monitor on the inpatient unit. Continue other medications and care as ordered. Justification for Cont. Inpt. Impairment in reality construction. High risk for decompensation in a less restrictive setting. Discharge Planning Patient requires placement. Counselor working on this. Request HC Surrog/Guard Advoc?: No Problem Qualifiers (1) Schizophrenia: Qualified Code: F20.0 - Paranoid schizophrenia Zach Valera MD Sep 18, 2016 12:06
[2016-09-18] MEDS: OLANZapine 10 MG TAB PO SCH (21:32)
[2016-09-18] MEDS: HALOPERIDOL 2 MG TAB PO SCH (21:32)
[2016-09-19] MEDS: SULFACETAMIDE SODIUM 10% OPTH SOLN 15 ML BTL RIGHT EYE SCH ×6 (04:00→20:00)
[2016-09-19 06:06] VITALS: BP 128/58; PULSE 90; RESP 18; TEMP 97.7; O2SAT 98
[2016-09-19] MEDS: DIVALPROEX DR 500 MG TABEC PO SCH ×2 (09:00→20:22)
[2016-09-19] MEDS: THIAMINE HCL 100 MG TAB PO SCH (09:10)
[2016-09-19] MEDS: HALOPERIDOL 2 MG TAB PO SCH ×2 (09:11→20:22)
[2016-09-19] MEDS: FOLIC ACID 1 MG TAB PO SCH (09:11)
[2016-09-19] MEDS: ACETAMINOPHEN 325 MG TAB PO PRN (09:13)
--- NOTE | 2016-09-19 13:41 | HHI.PYPN ---
Subjective Remarks Patient seen and examined. Chart reviewed. Case discussed with nursing staff. On my examination today, the patient remains fairly disorganized and rambling. He is little bit irritable. He says "I want to get home. I want a foot soak." Remains internally preoccupied. Denies side effects from medications. Review of Systems ROS Limitations: Psychotic, Poor Historian Except as stated in HPI: all other systems reviewed are Neg Objective Alert: Yes [place]: Person, Place Mood: Other (slightly irritable) Affect: Blunted Memory Intact: Comment (Not formally assessed) Hallucinations: Other (remains internally preoccupied) Delusions: No Delusion Type: Other (no stephanie delusional material verbalized today) Suicidal: Ideation (no SI) Homicidal: Ideation (no HI) Insight/Judgement Poor Remarks No motor abnormalities noted. Thought process disorganized. Speech rambling. Labs Labs reviewed. No new labs. Vitals/IOs Vital Signs Date Time Temp Pulse Resp B/P Pulse Ox O2 Delivery O2 Flow Rate FiO2 09/19/16 06:06 97.7 90 18 128/58 98 Assessment & Plan Problem List: (1) Schizophrenia ICD Code: F20.9 Assessment & Plan No real effect that I can discern, good or bad, from the addition of the Haldol. I will try to titrate the Haldol to 5 mg twice daily augmenting Zyprexa and Depakote over the weekend to see if this provides any additional benefit. Continue to monitor on the inpatient unit. Continue other medications and care as ordered. Justification for Cont. Inpt. Impairment in reality construction. Medication changes and process. High risk for decompensation in a less restrictive environment. Discharge Planning [facility]acement [facility]. Request HC Surrog/Guard Advoc?: No Problem Qualifiers (1) Schizophrenia: Qualified Code: F20.0 - Paranoid schizophrenia Zach Valera MD Sep 19, 2016 13:41
[2016-09-19 17:00] VITALS: BP 113/84; PULSE 76; RESP 18; TEMP 98.4
[2016-09-19] MEDS: OLANZapine 10 MG TAB PO SCH (20:22)
[2016-09-20] MEDS: SULFACETAMIDE SODIUM 10% OPTH SOLN 15 ML BTL RIGHT EYE SCH ×6 (00:52→20:15)
[2016-09-20 06:38] VITALS: BP 104/60; PULSE 63; RESP 18; TEMP 98; O2SAT 97
[2016-09-20] MEDS: THIAMINE HCL 100 MG TAB PO SCH (09:39)
[2016-09-20] MEDS: HALOPERIDOL 2 MG TAB PO SCH ×2 (09:39→20:15)
[2016-09-20] MEDS: FOLIC ACID 1 MG TAB PO SCH (09:39)
[2016-09-20] MEDS: DIVALPROEX DR 500 MG TABEC PO SCH ×2 (09:39→20:11)
--- NOTE | 2016-09-20 12:03 | HHI.PYPN ---
Subjective Remarks Pt seen and discussed with staff. He remains delusional and disorganized. He states that he is "doing well I have a bedside today". He attributes zoroastrianism significance to the face that MD is not wearing a wedding ring. He has been compliant with medications and denies side effects. He is observed talking and laughing to self frequently. Review of Systems Psychiatric: COMPLAINS OF: Hallucinations, Delusions Objective Alert: Yes [place]: Person, Place Mood: Other Affect: Other (expansive) Memory Intact: Comment (fair) Hallucinations: Auditory, Other (remains internally preoccupied) Delusions: No Delusion Type: Other (zoroastrianism) Suicidal: Ideation (no SI) Homicidal: Ideation (no HI) Insight/Judgement poor Vitals/IOs Vital Signs Date Time Temp Pulse Resp B/P Pulse Ox O2 Delivery O2 Flow Rate FiO2 09/20/16 06:38 98.0 63 18 104/60 97 Assessment & Plan Problem List: (1) Schizophrenia ICD Code: F20.9 Assessment & Plan Continue current tx plan. Estimated LOS: days Justification for Cont. Inpt. severe impairments in reality testing and poor self care Request HC Surrog/Guard Advoc?: No Problem Qualifiers (1) Schizophrenia: Qualified Code: F20.0 - Paranoid schizophrenia Parul Erazo MD Sep 20, 2016 12:03
[2016-09-20 17:24] VITALS: BP 117/85; PULSE 92; RESP 18; TEMP 99.9; O2SAT 100
[2016-09-20] MEDS: OLANZapine 10 MG TAB PO SCH (20:15)
[2016-09-21] MEDS: SULFACETAMIDE SODIUM 10% OPTH SOLN 15 ML BTL RIGHT EYE SCH ×6 (03:30→21:15)
[2016-09-21 05:54] VITALS: BP 144/76; PULSE 61; RESP 18; TEMP 98; O2SAT 98
[2016-09-21] MEDS: THIAMINE HCL 100 MG TAB PO SCH (09:34)
[2016-09-21] MEDS: DIVALPROEX DR 500 MG TABEC PO SCH ×2 (09:34→21:15)
[2016-09-21] MEDS: HALOPERIDOL 2 MG TAB PO SCH ×2 (09:34→21:15)
[2016-09-21] MEDS: FOLIC ACID 1 MG TAB PO SCH (09:34)
--- NOTE | 2016-09-21 13:51 | HHI.PYPN ---
Subjective Remarks Pt seen and discussed with staff. He remains psychotic and delusional. He is compliant with medication. He continues to engage in disorganized behaviors. No SI/HI. No medication side effects. Review of Systems Psychiatric: COMPLAINS OF: Hallucinations, Delusions Objective Alert: Yes [place]: Person, Place Mood: Calm Affect: Flat Memory Intact: Comment (fair) Hallucinations: Auditory, Other (remains internally preoccupied) Delusions: No Delusion Type: Other (religion, bizarre) Suicidal: Ideation (no SI) Homicidal: Ideation (no HI) Insight/Judgement poor Vitals/IOs Vital Signs Date Time Temp Pulse Resp B/P Pulse Ox O2 Delivery O2 Flow Rate FiO2 09/21/16 05:54 98.0 61 18 144/76 98 Assessment & Plan Problem List: (1) Schizophrenia ICD Code: F20.9 Assessment & Plan Continue current tx plan. Estimated LOS: days Justification for Cont. Inpt. Impairments in reality construction and self care Request HC Surrog/Guard Advoc?: No Problem Qualifiers (1) Schizophrenia: Qualified Code: F20.0 - Paranoid schizophrenia Parul Erazo MD Sep 21, 2016 13:51
[2016-09-21 18:34] VITALS: BP 113/68; PULSE 71; RESP 16; TEMP 97.8; O2SAT 99
[2016-09-21] MEDS: OLANZapine 10 MG TAB PO SCH (21:14)
[2016-09-21] MEDS: LORazepam 0.5 MG TAB age > 65 yrs PO PRN (21:15)
[2016-09-21] MEDS: ACETAMINOPHEN 325 MG TAB PO PRN (21:16)
[2016-09-22] MEDS: SULFACETAMIDE SODIUM 10% OPTH SOLN 15 ML BTL RIGHT EYE SCH ×7 (04:00→23:24)
[2016-09-22 05:49] VITALS: BP 121/90; PULSE 77; RESP 15; TEMP 97.3; O2SAT 96
[2016-09-22] MEDS: THIAMINE HCL 100 MG TAB PO SCH (08:20)
[2016-09-22] MEDS: HALOPERIDOL 2 MG TAB PO SCH ×2 (08:20→20:04)
[2016-09-22] MEDS: DIVALPROEX DR 500 MG TABEC PO SCH ×2 (08:20→20:04)
[2016-09-22] MEDS: FOLIC ACID 1 MG TAB PO SCH (08:20)
--- NOTE | 2016-09-22 10:49 | HHI.PYPN ---
Subjective Remarks Patient seen and examined with nurse. Chart reviewed. Case discussed with nursing staff. Patient remains internally stimulated but no behavioral problem. On my examination today, patient is calm and pleasant, resting in bed. Denies AVH. Wants to soak his feet. Denies side effects from medications. No other issues noted. Review of Systems ROS Limitations: Poor Historian Except as stated in HPI: all other systems reviewed are Neg Objective Alert: Yes [place]: Person, Place Mood: Calm Affect: Flat (remains fairly flat) Memory Intact: Comment (fair) Hallucinations: Other (again internally preoccupied) Delusions: No Delusion Type: Other (none elicited) Suicidal: Ideation (no SI) Homicidal: Ideation (no HI) Insight/Judgement Poor Remarks Thought process disorganized Labs Labs reviewed Vitals/IOs Vital Signs Date Time Temp Pulse Resp B/P Pulse Ox O2 Delivery O2 Flow Rate FiO2 09/22/16 05:49 97.3 77 15 121/90 96 Assessment & Plan Problem List: (1) Schizophrenia ICD Code: F20.9 Assessment & Plan No real discernible benefit from addition of Haldol through the weekend. If no benefit in the next day or 2, more than likely we'll just discontinue. Continue to monitor on the inpatient unit. Continue other medications and care as ordered. Justification for Cont. Inpt. High risk for decompensation in a less restrictive environment. Impairment in reality construction. Discharge Planning Placement Request HC Surrog/Guard Advoc?: No Problem Qualifiers (1) Schizophrenia: Qualified Code: F20.0 - Paranoid schizophrenia Zach Valera MD Sep 22, 2016 10:49
[2016-09-22] MEDS: ACETAMINOPHEN 325 MG TAB PO PRN (15:02)
[2016-09-22 18:00] VITALS: BP 112/64; PULSE 69; RESP 16; TEMP 97.3; O2SAT 98
[2016-09-22] MEDS: OLANZapine 10 MG TAB PO SCH (20:05)
[2016-09-22] MEDS: LORazepam 0.5 MG TAB age > 65 yrs PO PRN (21:02)
[2016-09-23] MEDS: IBUPROFEN 400 MG TAB PO PRN ×2 (02:19→20:19)
[2016-09-23] MEDS: SULFACETAMIDE SODIUM 10% OPTH SOLN 15 ML BTL RIGHT EYE SCH ×5 (03:10→20:00)
[2016-09-23 05:56] VITALS: BP 107/60; PULSE 55; RESP 18; TEMP 97.6; O2SAT 97
[2016-09-23] MEDS: DIVALPROEX DR 500 MG TABEC PO SCH ×2 (09:39→20:18)
[2016-09-23] MEDS: FOLIC ACID 1 MG TAB PO SCH (09:39)
[2016-09-23] MEDS: HALOPERIDOL 2 MG TAB PO SCH ×2 (09:40→20:19)
[2016-09-23] MEDS: THIAMINE HCL 100 MG TAB PO SCH (09:40)
--- NOTE | 2016-09-23 12:15 | HHI.PYPN ---
Subjective Remarks Patient seen and examined with nurse. Chart reviewed. Case discussed in treatment team with nurse, counselor and occupational therapist. Per nursing staff, patient is more or less unchanged today. Counselor reports that information systems planner has made approximately a half dozen referrals for assisted living placement. On my examination today, patient is discharged focus. He remains disorganized and rambling. Remains somewhat internally stimulated. Patient complaining of some sort of right sided facial/ear pain. It is difficult to get a good history. He seems to say that he wants ear drops in the right ear for right eye pain. Denies side effects from medications. Review of Systems Except as stated in HPI: all other systems reviewed are Neg Objective Alert: Yes [place]: Person, Place Mood: Calm Affect: Blunted Memory Intact: Comment (fair) Hallucinations: Other (remains internally stimulated) Delusions: No Delusion Type: Other (no delusional material voiced) Suicidal: Ideation (no SI) Homicidal: Ideation (no HI) Insight/Judgement Poor Remarks Thought process disorganized. Speech rambling. Grooming and hygiene fair. Labs Labs reviewed. No new labs. Vitals/IOs Vital Signs Date Time Temp Pulse Resp B/P Pulse Ox O2 Delivery O2 Flow Rate FiO2 09/23/16 05:56 97.6 55 18 107/60 97 Assessment & Plan Problem List: (1) Schizophrenia ICD Code: F20.9 Assessment & Plan Continue Zyprexa, Haldol and Depakote as ordered. I will ask the hospitalist to return to assess the patient for his physical complaints. Continue to monitor on the inpatient unit. Continue other medications and care as ordered. Justification for Cont. Inpt. Impairment in reality construction. High risk for decompensation in a less restrictive environment. Discharge Planning Placement. Request HC Surrog/Guard Advoc?: No Problem Qualifiers (1) Schizophrenia: Qualified Code: F20.0 - Paranoid schizophrenia Zach Valera MD Sep 23, 2016 12:15
[2016-09-23 17:47] VITALS: BP 125/77; PULSE 72; RESP 18; TEMP 97.9; O2SAT 98
[2016-09-23] MEDS: OLANZapine 10 MG TAB PO SCH (20:18)
[2016-09-23] MEDS: LORazepam 0.5 MG TAB age > 65 yrs PO PRN (20:18)
[2016-09-24] MEDS: SULFACETAMIDE SODIUM 10% OPTH SOLN 15 ML BTL RIGHT EYE SCH ×7 (04:00→23:21)
[2016-09-24 06:16] VITALS: BP 125/58; PULSE 59; RESP 17; TEMP 97.8; O2SAT 97
[2016-09-24 07:47] LABS: AUTOMATED NEUTROPHIL # 1.6 TH/MM3 (1.8-7.7); BASOPHIL # 0.1 TH/MM3 (0-0.2); BASOPHIL % 1.1 % (0.0-2.0); EOSINOPHIL # 0.3 TH/MM3 (0-0.4); EOSINOPHIL % 5.6 % (0.0-4.0); HEMATOCRIT 40.7 % (39.0-51.0); HEMO FLAGS DIFF FINAL; LYMPH % 42.8 % (9.0-44.0); MEAN CORPUSCULAR HEMOGLOBIN 30.8 PG (27.0-34.0); MEAN CORPUSCULAR HGB CONC 33.1 % (32.0-36.0); NEUT % 34.5 % (16.0-70.0); PLATELET COUNT 237 TH/MM3 (150-450); RED BLOOD COUNT 4.37 MIL/MM3 (4.50-5.90); RED CELL DISTRIBUTION WIDTH 14.1 % (11.6-17.2); WHITE BLOOD COUNT 4.7 TH/MM3 (4.0-11.0)
[2016-09-24 08:17] LABS: POTASSIUM 4.3 MEQ/L (3.5-5.1)
[2016-09-24 08:19] LABS: BICARBONATE 27.8 MEQ/L (21.0-32.0)
[2016-09-24] MEDS: HALOPERIDOL 2 MG TAB PO SCH ×2 (09:03→20:39)
[2016-09-24] MEDS: FOLIC ACID 1 MG TAB PO SCH (09:03)
[2016-09-24] MEDS: DIVALPROEX DR 500 MG TABEC PO SCH (09:04)
[2016-09-24] MEDS: THIAMINE HCL 100 MG TAB PO SCH (09:04)
--- NOTE | 2016-09-24 10:15 | HHI.PYPN ---
Subjective Remarks Patient seen and examined with nurse. Chart reviewed. Case discussed with nursing staff. Patient noted to be seclusive to his room. On my examination today, patient is somewhat irritable. He is discharge focused. He is perseverative on his foot soak. He denies any AVH. 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 Denies side effects from medications. Review of Systems ROS Limitations: Poor Historian Except as stated in HPI: all other systems reviewed are Neg Objective Alert: Yes [place]: Person, Place Mood: Other (somewhat irritable) Affect: Blunted Memory Intact: Comment (fair) Hallucinations: Other (internally preoccupied) Delusions: Yes Delusion Type: Grandiose Suicidal: Ideation (no SI) Homicidal: Ideation (no HI) Insight/Judgement Poor Remarks Thought process disorganized. Speech rambling. Labs Test 09/24/16 06:50 White Blood Count 4.7 TH/MM3 Red Blood Count 4.37 MIL/MM3 Hemoglobin 13.5 GM/DL Hematocrit 40.7 % Mean Corpuscular Volume 93.0 FL Mean Corpuscular Hemoglobin 30.8 PG Mean Corpuscular Hemoglobin 33.1 % Concent Red Cell Distribution Width 14.1 % Platelet Count 237 TH/MM3 Mean Platelet Volume 8.0 FL Neutrophils (%) (Auto) 34.5 % Lymphocytes (%) (Auto) 42.8 % Monocytes (%) (Auto) 16.0 % Eosinophils (%) (Auto) 5.6 % Basophils (%) (Auto) 1.1 % Neutrophils # (Auto) 1.6 TH/MM3 Lymphocytes # (Auto) 2.0 TH/MM3 Monocytes # (Auto) 0.7 TH/MM3 Eosinophils # (Auto) 0.3 TH/MM3 Basophils # (Auto) 0.1 TH/MM3 CBC Comment DIFF FINAL Differential Comment Sodium Level 142 MEQ/L Potassium Level 4.3 MEQ/L Chloride Level 105 MEQ/L Carbon Dioxide Level 27.8 MEQ/L Anion Gap 9 MEQ/L Blood Urea Nitrogen 20 MG/DL Creatinine 0.96 MG/DL Estimat Glomerular Filtration 99 ML/MIN Rate Random Glucose 92 MG/DL Calcium Level 8.6 MG/DL Magnesium Level 2.0 MG/DL Labs reviewed. Vitals/IOs Vital Signs Date Time Temp Pulse Resp B/P Pulse Ox O2 Delivery O2 Flow Rate FiO2 4/5/17 06:16 97.8 59 17 125/58 97 Assessment & Plan Problem List: (1) Schizophrenia ICD Code: F20.9 Assessment & Plan Titrate Depakote to manage irritability: 750 mg twice daily. Plan to check a level Thursday morning. Continue other psychotropics as ordered. Continue other medications and care as ordered. Justification for Cont. Inpt. Impairment in reality construction. Impairment in social functioning. Medication changes. Risk for decompensation in a less restrictive environment. Discharge Planning Placement. Request HC Surrog/Guard Advoc?: No Problem Qualifiers (1) Schizophrenia: Qualified Code: F20.0 - Paranoid schizophrenia Zach Valera MD Sep 24, 2016 10:15
--- NOTE | 2016-09-24 15:00 | HHI.PR ---
Subjective Remarks Reconsult on patient with tooth pain and right ear pain. Patient previously with complaints of right eye redness but this has resolved. He is complaining of right upper dental pain and right ear pain. Denies any fever or chills. No nausea or vomiting. No drainage from the ear. States he has a long history of dental problems/caries. He knows he needs to be seen by dentist. Objective Vitals Vital Signs Date Time Temp Pulse Resp B/P Pulse Ox O2 Delivery O2 Flow Rate FiO2 09/24/16 06:16 97.8 59 17 125/58 97 09/23/16 17:47 97.9 72 18 125/77 98 Result Diagram: 09/24/16 0650 09/24/16 0650 Objective Remarks GENERAL: This is a thin 55-year-old male patient SKIN: No rashes, ecchymoses or lesions. Warm and dry. HEAD: Atraumatic. Normocephalic. EYES: Extraocular motions intact. No scleral icterus. No injection or drainage. ENT: Nose without bleeding, purulent drainage or septal hematoma. Throat without erythema, tonsillar hypertrophy or exudate. Uvula midline. Airway patent. Right ear NTTP. No drainage appreciated. Ear canal and TM WNL. ORAL CAVITY: Extremely poor dentition. Multiple extensive dental caries with most teeth brought into the gumline. No drainage or pus noted. Tenderness to palpation over right upper back teeth. NECK: Trachea midline. No lymphadenopathy. CARDIOVASCULAR: Regular rate and rhythm without murmurs, gallops, or rubs. RESPIRATORY: Clear to auscultation. Breath sounds equal bilaterally. No wheezes , rales, or rhonchi. GASTROINTESTINAL: Abdomen soft, non-tender, nondistended. No hepato-splenomegaly , or palpable masses. No guarding. MUSCULOSKELETAL: Extremities without clubbing, cyanosis, or edema. No joint tenderness, effusion, or edema noted. No calf tenderness. NEUROLOGICAL: Awake and alert. No focal deficits identified. Able to move all 4 extremities. Medications and IVs Current Medications Medications (Trade) Dose Ordered Sig/Isaac Route Start Time Stop Time Status Last Admin (Ativan) 0.5 mg Q12H PRN PO 08/26/16 03:45 09/23/16 20:18 (Ativan Inj) 0.5 mg Q12H PRN IM 08/26/16 03:45 (Benadryl) 50 mg Q6H PRN PO 08/26/16 03:45 09/16/16 20:03 (Benadryl Inj) 50 mg Q6H PRN IM 08/26/16 03:45 (Tylenol) 650 mg Q4H PRN PO 08/26/16 03:45 09/22/16 15:02 (Milk Of Magnesia Liq) 30 ml DAILY PRN PO 08/26/16 03:45 (Mag-Al Plus Susp Liq) 30 ml Q6H PRN PO 08/26/16 03:45 09/16/16 03:43 (Vitamin B1) 100 mg DAILY PO 08/29/16 09:00 09/24/16 09:04 (Folate) 1 mg DAILY PO 08/29/16 09:00 09/24/16 09:03 (Epsom Salt) 120 gm DAILY PRN TOPICAL 09/01/16 12:15 09/10/16 18:24 (ZyPREXA) 20 mg HS PO 09/11/16 21:00 09/23/16 20:18 (Bleph-10 Opth Soln) 1 drop Q4HR RIGHT EYE 09/13/16 20:00 09/24/16 08:00 (Motrin) 400 mg Q6H PRN PO 09/15/16 13:15 09/23/16 20:19 (Haldol) 5 mg Taper BID PO 09/19/16 21:00 09/30/16 20:59 09/24/16 09:03 (Depakote Dr) 750 mg BID PO 09/24/16 21:00 A/P Assessment and Plan This is a 55-year-old male patient with past medical history which includes GERD, arthritis, paranoid schizophrenia. Patient seen today inpatient psychiatric center. We were consulted previously for assistance with management of tooth pain and eye erythema. Reconsulted for right ear pain and right upper dental pain. Paranoid Schizophrenia - management per psychiatric team Multiple dental caries with pain - Afebrile, white count normal. - Discussed with patient the need to follow-up with dentist as well as possible and/or oral surgeon after discharge. Patient stated understanding. Unfortunately those services are not available at the hospital. - Continue Tylenol and/or ibuprofen as needed for pain - No obvious abscess identified, treat prophylactically with Pen-VK 500mg po QID Right ear pain - normal on exam - Suspect due to radicular dental pain as discussed above. Right eye erythema- resolved DVT prophylaxis patient is ambulatory and low risk Discussed with patient as well as nursing staff Written by Smita Carter PA-C acting as scribe for Dr. Purdy on 09/24/16 at 14:57. All or portions of this note were transcribed by scribe Smita Carter PA-C. I, Dr. Esvin Purdy personally performed the history, physical exam, and medical decision making; and confirmed the accuracy of the information in the transcribed note. Authenticated by Dr. Esvin Purdy on 09/24/16 at 16:14. Smita Carter Sep 24, 2016 15:00 Esvin Purdy MD Sep 24, 2016 16:14
[2016-09-24] MEDS: PENICILLIN V POTASSIUM 500 MG TAB PO SCH ×2 (17:00→23:00)
[2016-09-24 17:58] VITALS: BP 142/66; PULSE 85; RESP 16; TEMP 98.5; O2SAT 95
[2016-09-24] MEDS: DIVALPROEX SODIUM DELAYED RELEASE 250 MG TAB PO SCH (20:38)
[2016-09-24] MEDS: OLANZapine 10 MG TAB PO SCH (20:38)
[2016-09-24] MEDS: LORazepam 0.5 MG TAB age > 65 yrs PO PRN (20:39)
[2016-09-25] MEDS: SULFACETAMIDE SODIUM 10% OPTH SOLN 15 ML BTL RIGHT EYE SCH ×5 (03:07→20:00)
[2016-09-25] MEDS: PENICILLIN V POTASSIUM 500 MG TAB PO SCH ×3 (04:05→17:50)
[2016-09-25 05:47] VITALS: BP 111/68; PULSE 70; RESP 20; TEMP 97.2; O2SAT 95
[2016-09-25] MEDS: FOLIC ACID 1 MG TAB PO SCH (09:16)
[2016-09-25] MEDS: HALOPERIDOL 2 MG TAB PO SCH (09:16)
[2016-09-25] MEDS: DIVALPROEX SODIUM DELAYED RELEASE 250 MG TAB PO SCH ×2 (09:16→20:08)
[2016-09-25] MEDS: THIAMINE HCL 100 MG TAB PO SCH (09:16)
--- NOTE | 2016-09-25 10:21 | HHI.PYPN ---
Subjective Remarks Patient seen and examined with counselor and nurse. Chart reviewed. Case discussed with nursing staff. On my examination today, patient remains somewhat disorganized, irritable and rambling. He is discharge focused. Insight into mental illness poor. Denies side effects from medications. Review of Systems ROS Limitations: Psychotic, Poor Historian Except as stated in HPI: all other systems reviewed are Neg Objective Alert: Yes [place]: Person, Place Mood: Other (remains somewhat irritable) Affect: Blunted Memory Intact: Comment (fair at best) Hallucinations: Other (remains internally preoccupied) Delusions: No Delusion Type: Other (none elicited today) Suicidal: Ideation (no SI) Homicidal: Ideation (no HI) Insight/Judgement Poor Remarks Thought process somewhat disorganized. Speech rambling. Labs Labs reviewed. Vitals/IOs Vital Signs Date Time Temp Pulse Resp B/P Pulse Ox O2 Delivery O2 Flow Rate FiO2 09/25/16 05:47 97.2 70 20 111/68 95 Assessment & Plan Problem List: (1) Schizophrenia ICD Code: F20.9 Assessment & Plan Patient does not seem to be deriving any benefit from the addition of Haldol to his Zyprexa/Depakote regimen and if anything seems a little more persistently irritable on the Haldol than off of it. I will discontinue the Haldol. Continue Zyprexa and Depakote as ordered. Depakote level ordered for Thursday morning. Continue to monitor on the inpatient unit. Continue other medications and care as ordered. Justification for Cont. Inpt. High risk for decompensation in a less restrictive environment. Discharge Planning Placement. To consider [facility] referral. Request HC Surrog/Guard Advoc?: No Problem Qualifiers (1) Schizophrenia: Qualified Code: F20.0 - Paranoid schizophrenia Zach Vaelra MD Sep 25, 2016 10:21
[2016-09-25 18:00] VITALS: BP 125/71; PULSE 80; RESP 18; TEMP 97.7; O2SAT 97
[2016-09-25] MEDS: diphenhydrAMINE HCL 50 MG CAP PO PRN (20:07)
[2016-09-25] MEDS: OLANZapine 10 MG TAB PO SCH (20:07)
[2016-09-26] MEDS: PENICILLIN V POTASSIUM 500 MG TAB PO SCH ×5 (00:18→23:00)
[2016-09-26] MEDS: SULFACETAMIDE SODIUM 10% OPTH SOLN 15 ML BTL RIGHT EYE SCH ×6 (04:00→20:00)
[2016-09-26 06:11] VITALS: BP 102/65; PULSE 78; RESP 18; TEMP 97.7; O2SAT 97
[2016-09-26] MEDS: THIAMINE HCL 100 MG TAB PO SCH (08:57)
[2016-09-26] MEDS: DIVALPROEX SODIUM DELAYED RELEASE 250 MG TAB PO SCH ×2 (08:57→20:34)
[2016-09-26] MEDS: FOLIC ACID 1 MG TAB PO SCH (08:57)
--- NOTE | 2016-09-26 12:40 | HHI.PYPN ---
Subjective Remarks Patient continues to demonstrate significant looseness of associations. He is unable to speak, cogently and remains disorganized. Review of Systems ROS Limitations: Clinical Condition Objective Alert: Yes [place]: Person, Place Mood: Anxious, Other (remains somewhat irritable) Affect: Restricted, Blunted Memory Intact: Comment (fair at best) Hallucinations: Other (remains internally preoccupied) Delusions: Yes Delusion Type: Other (none elicited today) Suicidal: Ideation (no SI) Homicidal: Ideation (no HI) Insight/Judgment Markedly impaired Vitals/IOs Vital Signs Date Time Temp Pulse Resp B/P Pulse Ox O2 Delivery O2 Flow Rate FiO2 09/26/16 06:11 97.7 78 18 102/65 97 Assessment & Plan Problem List: (1) Schizophrenia ICD Code: F20.9 Assessment & Plan Estimated LOS: 7 days requires more time on antipsychotic medication. Justification for Cont. Inpt. Psychotic and unable to care for self. Request HC Surrog/Guard Advoc?: No Problem Qualifiers (1) Schizophrenia: Qualified Code: F20.0 - Paranoid schizophrenia Josue Moore MD Sep 26, 2016 12:40
[2016-09-26 19:03] VITALS: BP 140/66; PULSE 78; RESP 18; TEMP 98.4; O2SAT 99
[2016-09-26] MEDS: OLANZapine 10 MG TAB PO SCH (20:34)
[2016-09-27] MEDS: IBUPROFEN 400 MG TAB PO PRN (01:49)
[2016-09-27] MEDS: SULFACETAMIDE SODIUM 10% OPTH SOLN 15 ML BTL RIGHT EYE SCH ×6 (04:00→20:00)
[2016-09-27] MEDS: PENICILLIN V POTASSIUM 500 MG TAB PO SCH ×4 (05:00→23:14)
[2016-09-27 05:52] VITALS: BP 127/63; PULSE 69; RESP 17; TEMP 97.7; O2SAT 96
[2016-09-27] MEDS: FOLIC ACID 1 MG TAB PO SCH (08:31)
[2016-09-27] MEDS: THIAMINE HCL 100 MG TAB PO SCH (08:31)
[2016-09-27] MEDS: DIVALPROEX SODIUM DELAYED RELEASE 250 MG TAB PO SCH ×2 (08:31→22:48)
--- NOTE | 2016-09-27 16:52 | HHI.PYPN ---
Subjective Remarks Patient was seen and case discussed with nursing. Depakote level returned at 73. Per nursing he has been behaving well and compliant with medication. During the interview he is perseverative on the questions and is irritable and difficult to redirect. Remains disheveled with poor insight. Would not answer questions about psychosis Objective Alert: Yes [place]: Person, Place Mood: Oppositional, Other (remains somewhat irritable) Affect: Blunted Memory Intact: Comment (fair at best) Hallucinations: Other (remains internally preoccupied) Delusions: Yes Delusion Type: Other (none elicited today) Suicidal: Ideation (no SI) Homicidal: Ideation (no HI) Insight/Judgment Poor Labs Test 09/27/16 07:45 Valproic Acid (Depakene) Level 73 MCG/ML Vitals/IOs Vital Signs Date Time Temp Pulse Resp B/P Pulse Ox O2 Delivery O2 Flow Rate FiO2 09/27/16 05:52 97.7 69 17 127/63 96 Assessment & Plan Problem List: (1) Schizophrenia ICD Code: F20.9 Assessment & Plan Continue current treatment plan Justification for Cont. Inpt. Patient will decompensate in a less restrictive setting Request HC Surrog/Guard Advoc?: No Problem Qualifiers (1) Schizophrenia: Qualified Code: F20.0 - Paranoid schizophrenia Carlos Lombardi DO Sep 27, 2016 16:52
[2016-09-27 17:00] VITALS: BP 112/67; PULSE 82; RESP 18; TEMP 98.2; O2SAT 97
[2016-09-27] MEDS: OLANZapine 10 MG TAB PO SCH (21:00)
[2016-09-28] MEDS: SULFACETAMIDE SODIUM 10% OPTH SOLN 15 ML BTL RIGHT EYE SCH ×6 (04:00→20:00)
[2016-09-28] MEDS: PENICILLIN V POTASSIUM 500 MG TAB PO SCH ×4 (05:00→22:05)
[2016-09-28 05:48] VITALS: BP 147/70; PULSE 83; RESP 16; TEMP 98; O2SAT 95
[2016-09-28] MEDS: FOLIC ACID 1 MG TAB PO SCH (08:32)
[2016-09-28] MEDS: DIVALPROEX SODIUM DELAYED RELEASE 250 MG TAB PO SCH ×2 (08:32→20:06)
[2016-09-28] MEDS: THIAMINE HCL 100 MG TAB PO SCH (08:32)
[2016-09-28 19:30] VITALS: BP 121/74; PULSE 79; RESP 17; TEMP 97.9; O2SAT 97
--- NOTE | 2016-09-28 19:30 | HHI.PYPN ---
Subjective Remarks Patient was seen and case discussed with nursing. Patient is compliant with his medications except for penicillin. Describes his mood today is "pretty good." Continues to be disheveled with poor insight. Less irritable compared to yesterday Objective Alert: Yes [place]: Person, Place Mood: Oppositional Affect: Flat Memory Intact: Comment (not formally tested) Hallucinations: Other (remains internally preoccupied) Delusions: Yes Delusion Type: Other (none elicited today) Suicidal: Ideation (no SI) Homicidal: Ideation (no HI) Insight/Judgment Poor Vitals/IOs Vital Signs Date Time Temp Pulse Resp B/P Pulse Ox O2 Delivery O2 Flow Rate FiO2 09/28/16 05:48 98.0 83 16 147/70 95 Assessment & Plan Problem List: (1) Schizophrenia ICD Code: F20.9 Assessment & Plan Continue current treatment plan Justification for Cont. Inpt. Patient will decompensate in a less restrictive setting Request HC Surrog/Guard Advoc?: No Problem Qualifiers (1) Schizophrenia: Qualified Code: F20.0 - Paranoid schizophrenia Carlos Lombardi DO Sep 28, 2016 19:30
[2016-09-28] MEDS: LORazepam 0.5 MG TAB age > 65 yrs PO PRN (20:05)
[2016-09-28] MEDS: OLANZapine 10 MG TAB PO SCH (20:06)
[2016-09-28] MEDS: ACETAMINOPHEN 325 MG TAB PO PRN (20:10)
[2016-09-29] MEDS: SULFACETAMIDE SODIUM 10% OPTH SOLN 15 ML BTL RIGHT EYE SCH ×7 (04:00→23:40)
[2016-09-29] MEDS: PENICILLIN V POTASSIUM 500 MG TAB PO SCH ×4 (06:08→23:00)
[2016-09-29 06:18] VITALS: BP 104/92; PULSE 63; RESP 16; TEMP 97.8; O2SAT 96
[2016-09-29] MEDS: DIVALPROEX SODIUM DELAYED RELEASE 250 MG TAB PO SCH ×2 (09:35→20:34)
[2016-09-29] MEDS: FOLIC ACID 1 MG TAB PO SCH (09:35)
[2016-09-29] MEDS: THIAMINE HCL 100 MG TAB PO SCH (09:36)
--- NOTE | 2016-09-29 10:46 | HHI.PYPN ---
Subjective Remarks Patient seen and examined with counselor and nurse. Chart reviewed. Case discussed with nursing staff who reports patient is more or less unchanged today. No behavioral problem. On my examination today, the patient seems significantly less irritable than before the weekend. He remains disorganized and rambling. He says "I feel okay. Glad to be here." Begins singing "Yesterday" by the Beetles. Denies side effects from medications. Review of Systems Except as stated in HPI: all other systems reviewed are Neg Objective Alert: Yes [place]: Person, Place Mood: Calm Affect: Euthymic Memory Intact: Comment (not formally assessed) Hallucinations: Other (somewhat internally preoccupied) Delusions: Yes Delusion Type: Other (no stephanie delusions) Suicidal: Ideation (no SI) Homicidal: Ideation (no HI) Insight/Judgment Poor Remarks No new motor abnormalities. Thought process a little bit disorganized. Speech rambling. Grooming and hygiene fair. Labs Labs reviewed. Vitals/IOs Vital Signs Date Time Temp Pulse Resp B/P Pulse Ox O2 Delivery O2 Flow Rate FiO2 09/29/16 06:18 97.8 63 16 104/92 96 Assessment & Plan Problem List: (1) Schizophrenia ICD Code: F20.9 Assessment & Plan Patient seems less dysphoric and less irritable off of Haldol. Continue Zyprexa and Depakote as ordered. Continue to monitor on the inpatient unit. Continue other medications and care as ordered. Justification for Cont. Inpt. High risk for decompensation in a less restrictive environment Discharge Planning Placement. Still to consider [facility] referral. Request HC Surrog/Guard Advoc?: No Problem Qualifiers (1) Schizophrenia: Qualified Code: F20.0 - Paranoid schizophrenia Zach Valera MD Sep 29, 2016 10:46
[2016-09-29 17:42] VITALS: BP 130/81; PULSE 83; RESP 18; TEMP 98.2; O2SAT 99
[2016-09-29] MEDS: OLANZapine 10 MG TAB PO SCH (20:34)
[2016-09-30] MEDS: SULFACETAMIDE SODIUM 10% OPTH SOLN 15 ML BTL RIGHT EYE SCH ×5 (04:00→20:00)
[2016-09-30] MEDS: PENICILLIN V POTASSIUM 500 MG TAB PO SCH ×4 (05:00→20:40)
[2016-09-30 06:03] VITALS: BP 104/68; PULSE 73; RESP 18; TEMP 98; O2SAT 95
[2016-09-30] MEDS: THIAMINE HCL 100 MG TAB PO SCH (08:28)
[2016-09-30] MEDS: FOLIC ACID 1 MG TAB PO SCH (08:28)
[2016-09-30] MEDS: DIVALPROEX SODIUM DELAYED RELEASE 250 MG TAB PO SCH ×2 (08:28→20:40)
--- NOTE | 2016-09-30 11:53 | HHI.PYPN ---
Subjective Remarks Patient seen and examined. Chart reviewed. Case discussed in treatment team with nurse, counselor and occupational therapist. Per nursing staff, patient has been no behavioral problem. Counselor continues to work on placement. Occupational therapist notes that the patient especially enjoys groups where food is involved. On my examination today, the patient is calm and pleasant. He remains fairly disorganized and somewhat internally preoccupied although he denies AVH. Denies any homicidal ideation. No SI. Denies side effects from medications. Review of Systems ROS Limitations: Poor Historian Except as stated in HPI: all other systems reviewed are Neg Objective Alert: Yes [place]: Person, Place Mood: Calm Affect: Blunted Memory Intact: Comment (not formally assessed) Hallucinations: Other (again somewhat internally stimulated) Delusions: Yes Delusion Type: Other (none elicited today) Suicidal: Ideation (no SI) Homicidal: Ideation (no HI) Insight/Judgment Poor Remarks Thought process somewhat disorganized. Labs Labs reviewed. Vitals/IOs Vital Signs Date Time Temp Pulse Resp B/P Pulse Ox O2 Delivery O2 Flow Rate FiO2 09/30/16 06:03 98.0 73 18 104/68 95 Assessment & Plan Problem List: (1) Schizophrenia ICD Code: F20.9 Assessment & Plan Continue current psychotropics as ordered. Continue other medications and care as ordered. Justification for Cont. Inpt. High risk for decompensation in a less restrictive environment. Discharge Planning Patient requires placement Request HC Surrog/Guard Advoc?: No Problem Qualifiers (1) Schizophrenia: Qualified Code: F20.0 - Paranoid schizophrenia Zach Valera MD Sep 30, 2016 11:53
[2016-09-30 18:14] VITALS: BP 134/77; PULSE 84; RESP 16; TEMP 98; O2SAT 95
[2016-09-30] MEDS: OLANZapine 10 MG TAB PO SCH (20:40)
[2016-09-30] MEDS: IBUPROFEN 400 MG TAB PO PRN (20:43)
[2016-10-01] MEDS: SULFACETAMIDE SODIUM 10% OPTH SOLN 15 ML BTL RIGHT EYE SCH ×4 (04:00→11:53)
[2016-10-01] MEDS: PENICILLIN V POTASSIUM 500 MG TAB PO SCH ×4 (05:25→23:00)
[2016-10-01 06:14] VITALS: BP 126/78; PULSE 67; RESP 18; TEMP 97.3; O2SAT 98
[2016-10-01] MEDS: FOLIC ACID 1 MG TAB PO SCH (08:47)
[2016-10-01] MEDS: THIAMINE HCL 100 MG TAB PO SCH (08:47)
[2016-10-01] MEDS: DIVALPROEX SODIUM DELAYED RELEASE 250 MG TAB PO SCH ×2 (08:48→20:15)
--- NOTE | 2016-10-01 12:10 | HHI.PYPN ---
Subjective Remarks Patient seen and examined. Chart reviewed. Case discussed with nursing staff who reports patient was somewhat irritable today. On my examination, patient is calm and pleasant. He remained somewhat disorganized. He offers no particular complaints. Says he feels "about the same." Denies side effects from medications. Review of Systems ROS Limitations: Poor Historian Except as stated in HPI: all other systems reviewed are Neg Objective Alert: Yes [place]: Person, Place Mood: Calm Affect: Blunted (remains somewhat blunted) Memory Intact: Comment (not formally assessed) Hallucinations: Other (mildly internally stimulated) Delusions: No Delusion Type: Other (no delusional material elicited today) Suicidal: Ideation (no SI voiced) Homicidal: Ideation (no HI voiced) Insight/Judgment Poor Remarks Thought process somewhat disorganized. Speech little bit rambling. No new motor abnormalities noted. Labs Labs reviewed. Vitals/IOs Vital Signs Date Time Temp Pulse Resp B/P Pulse Ox O2 Delivery O2 Flow Rate FiO2 10/01/16 06:14 97.3 67 18 126/78 98 Intake and Output 09/30/16 09/30/16 10/01/16 08:00 16:00 00:00 Intake Total 720 ml Balance 720 ml Assessment & Plan Problem List: (1) Schizophrenia ICD Code: F20.9 Assessment & Plan Continue Zyprexa and Depakote as ordered. Red eye appears to have resolved and patient is refusing eyedrops anyway, discontinue eyedrops. Continue to monitor on the inpatient psychiatric unit. Continue other medications and care as ordered. Justification for Cont. Inpt. High risk for decompensation in a less restrictive environment. Discharge Planning Patient requires placement Request HC Surrog/Guard Advoc?: No Problem Qualifiers (1) Schizophrenia: Qualified Code: F20.0 - Paranoid schizophrenia Zach Valera MD Oct 01, 2016 12:09
[2016-10-01] MEDS: OLANZapine 10 MG TAB PO SCH (20:15)
[2016-10-01 21:53] VITALS: BP 123/70; PULSE 88; RESP 16; TEMP 98.5; O2SAT 97
[2016-10-02] MEDS: PENICILLIN V POTASSIUM 500 MG TAB PO SCH ×4 (05:00→21:43)
[2016-10-02 06:06] VITALS: BP 86/52; PULSE 61; RESP 18; TEMP 98.1; O2SAT 95
[2016-10-02 08:34] VITALS: BP 108/56; PULSE 82; RESP 16
[2016-10-02] MEDS: DIVALPROEX SODIUM DELAYED RELEASE 250 MG TAB PO SCH ×2 (09:42→21:42)
[2016-10-02] MEDS: FOLIC ACID 1 MG TAB PO SCH (09:42)
[2016-10-02] MEDS: THIAMINE HCL 100 MG TAB PO SCH (09:42)
--- NOTE | 2016-10-02 10:41 | HHI.PYPN ---
Subjective Remarks Patient seen and examined. Chart reviewed. Case discussed with nursing staff. On my examination today, patient is laying in bed. He remains somewhat disorganized. He denies side effects from medications and otherwise offers no complaints. Review of Systems ROS Limitations: Poor Historian Except as stated in HPI: all other systems reviewed are Neg Objective Alert: Yes [place]: Person, Place Mood: Calm Affect: Blunted (again blunted) Memory Intact: Comment (not formally assessed) Hallucinations: Other (no AVH) Delusions: No Delusion Type: Other (no delusions) Suicidal: Ideation (no SI voiced) Homicidal: Ideation (no HI voiced) Insight/Judgment Poor Remarks Thought process somewhat disorganized. No motor abnormalities noted. Labs Labs reviewed. Vitals/IOs Vital Signs Date Time Temp Pulse Resp B/P Pulse Ox O2 Delivery O2 Flow Rate FiO2 10/02/16 08:34 82 16 108/56 10/02/16 06:06 98.1 95 Assessment & Plan Problem List: (1) Schizophrenia ICD Code: F20.9 Assessment & Plan Continue current psychotropics as ordered. Continue other medications and care as ordered. Justification for Cont. Inpt. High risk for decompensation in a less restrictive environment. Discharge Planning Placement in assisted living facility Request HC Surrog/Guard Advoc?: No Problem Qualifiers (1) Schizophrenia: Qualified Code: F20.0 - Paranoid schizophrenia Zach Valera MD Oct 02, 2016 10:41
[2016-10-02 18:45] VITALS: BP 122/79; PULSE 66; RESP 16; TEMP 98.3; O2SAT 95
[2016-10-02] MEDS: OLANZapine 10 MG TAB PO SCH (21:42)
[2016-10-02] MEDS: IBUPROFEN 400 MG TAB PO PRN (21:43)
[2016-10-03] MEDS: PENICILLIN V POTASSIUM 500 MG TAB PO SCH ×5 (04:16→23:13)
[2016-10-03 05:55] VITALS: BP 110/60; PULSE 72; RESP 18; TEMP 97.8; O2SAT 98
[2016-10-03] MEDS: DIVALPROEX SODIUM DELAYED RELEASE 250 MG TAB PO SCH ×2 (08:08→21:49)
[2016-10-03] MEDS: THIAMINE HCL 100 MG TAB PO SCH (08:08)
[2016-10-03] MEDS: FOLIC ACID 1 MG TAB PO SCH (08:09)
--- NOTE | 2016-10-03 11:00 | HHI.PYPN ---
Subjective Remarks Patient seen and examined with counselor and nurse. Chart reviewed. Case discussed with nursing staff who reports patient has been no behavioral problem. On my examination today, the patient is somewhat agitated secondary to discharge focus. He is able to be redirected. No SI or HI voiced. Denies side effects from medications. Review of Systems ROS Limitations: Poor Historian Except as stated in HPI: all other systems reviewed are Neg Objective Alert: Yes [place]: Person, Place Mood: Anxious Affect: Blunted Memory Intact: Comment (not formally assessed) Hallucinations: Other (none) Delusions: No Delusion Type: Other (no delusions) Suicidal: Ideation (no SI) Homicidal: Ideation (no HI) Insight/Judgment Poor Remarks Thought process perseverative Labs Labs reviewed. Vitals/IOs Vital Signs Date Time Temp Pulse Resp B/P Pulse Ox O2 Delivery O2 Flow Rate FiO2 10/03/16 05:55 97.8 72 18 110/60 98 Assessment & Plan Problem List: (1) Schizophrenia ICD Code: F20.9 Assessment & Plan Continue current psychotropics as ordered. Continue to monitor on the inpatient unit. Continue other medications and care as ordered. Justification for Cont. Inpt. High risk for decompensation in a less restrictive environment. Discharge Planning Placement Request HC Surrog/Guard Advoc?: No Problem Qualifiers (1) Schizophrenia: Qualified Code: F20.0 - Paranoid schizophrenia Zach Valera MD Oct 03, 2016 11:00
[2016-10-03 18:08] VITALS: BP 126/84; PULSE 83; RESP 18; TEMP 98.5; O2SAT 97
[2016-10-03] MEDS: OLANZapine 10 MG TAB PO SCH (21:49)
[2016-10-04] MEDS: PENICILLIN V POTASSIUM 500 MG TAB PO SCH ×2 (05:40→11:56)
[2016-10-04 06:04] VITALS: BP 107/67; PULSE 67; RESP 18; TEMP 98.2; O2SAT 95
[2016-10-04] MEDS: THIAMINE HCL 100 MG TAB PO SCH (08:40)
[2016-10-04] MEDS: DIVALPROEX SODIUM DELAYED RELEASE 250 MG TAB PO SCH ×2 (08:40→21:19)
[2016-10-04] MEDS: FOLIC ACID 1 MG TAB PO SCH (08:40)
[2016-10-04 20:23] VITALS: BP 115/70; PULSE 72; RESP 18; TEMP 98; O2SAT 97
[2016-10-04] MEDS: OLANZapine 10 MG TAB PO SCH (21:00)
[2016-10-04] MEDS: IBUPROFEN 400 MG TAB PO PRN (21:22)
--- NOTE | 2016-10-04 22:13 | HHI.PYPN ---
Subjective Remarks PT seen and discussed with staff. Pt has been compliant with medications. He denies SI/HI. AH are decreasing and he has been calmer on unit. No aggression. No medication side effects. Objective Alert: Yes [place]: Person, Place Mood: Calm Affect: Blunted Memory Intact: Comment (not formally assessed) Hallucinations: Other ("whispers") Delusions: No Delusion Type: Other (no delusions) Suicidal: Ideation (no SI) Homicidal: Ideation (no HI) Insight/Judgment poor Vitals/IOs Vital Signs Date Time Temp Pulse Resp B/P Pulse Ox O2 Delivery O2 Flow Rate FiO2 10/04/16 20:23 98.0 72 18 115/70 97 Assessment & Plan Problem List: (1) Schizophrenia ICD Code: F20.9 Assessment & Plan Pt improving. Continue current tx plan. Estimated LOS: days Justification for Cont. Inpt. impairments in reality construction and self care Request HC Surrog/Guard Advoc?: No Problem Qualifiers (1) Schizophrenia: Qualified Code: F20.0 - Paranoid schizophrenia Parul Erazo MD Oct 04, 2016 22:13
[2016-10-05 06:29] VITALS: BP 120/75; PULSE 82; RESP 20; TEMP 98.8; O2SAT 100
[2016-10-05] MEDS: DIVALPROEX SODIUM DELAYED RELEASE 250 MG TAB PO SCH ×2 (09:07→20:38)
[2016-10-05] MEDS: FOLIC ACID 1 MG TAB PO SCH (09:08)
[2016-10-05] MEDS: THIAMINE HCL 100 MG TAB PO SCH (09:08)
--- NOTE | 2016-10-05 14:10 | HHI.PYPN ---
Subjective Remarks PT seen and discussed with staff. He has been compliant with medications adn denies side effects. No behavioral problems on unit. He is carrying around a stack of [employer] cards and states that he is working on memorizing them. No SI/ HI Objective Alert: Yes [place]: Person, Place, Date ("Thursday") Mood: Calm Affect: Blunted Memory Intact: Comment (not formally assessed) Hallucinations: Other ("whispers") Delusions: No Delusion Type: Other (no delusions) Suicidal: Ideation (no SI) Homicidal: Ideation (no HI) Insight/Judgment poor Remarks disorganized Vitals/IOs Vital Signs Date Time Temp Pulse Resp B/P Pulse Ox O2 Delivery O2 Flow Rate FiO2 10/05/16 06:29 98.8 82 20 120/75 100 Assessment & Plan Problem List: (1) Schizophrenia ICD Code: F20.9 Assessment & Plan Continue current tx plan. Estimated LOS: days Justification for Cont. Inpt. impairments in selfcare social functioning and reality testing Request HC Surrog/Guard Advoc?: No Problem Qualifiers (1) Schizophrenia: Qualified Code: F20.0 - Paranoid schizophrenia Parul Erazo MD Oct 05, 2016 14:10
[2016-10-05 15:41] VITALS: BP 119/58; PULSE 104; RESP 18; TEMP 96.9; O2SAT 96
[2016-10-05] MEDS: OLANZapine 10 MG TAB PO SCH (20:38)
[2016-10-06 05:35] VITALS: BP 105/71; PULSE 72; RESP 17; TEMP 98.5; O2SAT 99
[2016-10-06] MEDS: THIAMINE HCL 100 MG TAB PO SCH (09:00)
[2016-10-06] MEDS: FOLIC ACID 1 MG TAB PO SCH (09:00)
[2016-10-06] MEDS: DIVALPROEX SODIUM DELAYED RELEASE 250 MG TAB PO SCH ×2 (09:00→20:23)
--- NOTE | 2016-10-06 10:05 | HHI.PYPN ---
Subjective Remarks Patient seen and examined with counselor. Chart reviewed. Case discussed with nursing staff who reports patient has been no behavioral problem. On my examination today, patient remains little bit disorganized. Mood is somewhat down today although the patient denies any suicidal or homicidal ideation. Denies any side effects from medications. No other issues noted. Review of Systems ROS Limitations: Poor Historian Except as stated in HPI: all other systems reviewed are Neg Objective Alert: Yes [place]: Person, Place (at least) Mood: Depressed (mild) Affect: Blunted Memory Intact: Comment (not formally assessed) Hallucinations: Other (No AVH) Delusions: No Delusion Type: Other (none elicited) Suicidal: Ideation (Denies SI) Homicidal: Ideation (Denies HI) Insight/Judgment Poor Remarks No abnormal motor movements noted. Speech somewhat rambling. Labs Labs reviewed. Vitals/IOs Vital Signs Date Time Temp Pulse Resp B/P Pulse Ox O2 Delivery O2 Flow Rate FiO2 10/06/16 05:35 98.5 72 17 105/71 99 Assessment & Plan Problem List: (1) Schizophrenia ICD Code: F20.9 Assessment & Plan Continue Zyprexa and Depakote as ordered. Could consider adding an antidepressant if patient's mood remains low, although this is presently mild and newly reported. Continue other medications and care as ordered. Justification for Cont. Inpt. High risk for decompensation in a less restrictive environment. Discharge Planning Placement. Case discussed with counselor. nurse discharge planner continues to make referrals to facilities. Request HC Surrog/Guard Advoc?: No Problem Qualifiers (1) Schizophrenia: Qualified Code: F20.0 - Paranoid schizophrenia Zach Valera MD Oct 06, 2016 10:05
[2016-10-06 16:42] VITALS: BP 117/75; PULSE 80; RESP 18; TEMP 98.6; O2SAT 99
[2016-10-06] MEDS: diphenhydrAMINE HCL 50 MG CAP PO PRN (20:24)
[2016-10-06] MEDS: OLANZapine 10 MG TAB PO SCH (20:54)
[2016-10-07] MEDS: THIAMINE HCL 100 MG TAB PO SCH (09:21)
[2016-10-07] MEDS: FOLIC ACID 1 MG TAB PO SCH (09:21)
[2016-10-07] MEDS: DIVALPROEX SODIUM DELAYED RELEASE 250 MG TAB PO SCH ×2 (09:21→20:23)
--- NOTE | 2016-10-07 12:44 | HHI.PYPN ---
Subjective Remarks Patient seen and examined. Chart reviewed. Case discussed in treatment team with counselor nurse. Per nursing staff, patient has been a behavioral problem. On my examination today, the patient seems to be a better spirits. He says he is having a good day. "I had a good lunch. My medications are working pretty good. I slept good. I guess everything else is okay." Thought process remains somewhat disorganized. Denies suicidal ideations. Denies side effects from medications. Review of Systems ROS Limitations: Poor Historian Except as stated in HPI: all other systems reviewed are Neg Objective Alert: Yes [place]: Person, Place Mood: Calm Affect: Euthymic Memory Intact: Comment (not formally assessed) Hallucinations: Other (No AVH) Delusions: No Delusion Type: Other (no delusions) Suicidal: Ideation (Denies SI) Homicidal: Ideation (no HI) Insight/Judgment Poor Remarks No new motor abnormalities noted. Labs Labs reviewed. Vitals/IOs Vital Signs Date Time Temp Pulse Resp B/P Pulse Ox O2 Delivery O2 Flow Rate FiO2 10/06/16 16:42 98.6 80 18 117/75 99 Intake and Output 10/06/16 10/06/16 10/07/16 08:00 16:00 00:00 Output Total 1 ml Balance -1 ml Assessment & Plan Problem List: (1) Schizophrenia ICD Code: F20.9 Assessment & Plan Continue Depakote and Zyprexa as ordered. Continue to monitor on the unit. Continue other medications and care as ordered. Justification for Cont. Inpt. High risk for decompensation in a less restrictive environment. Discharge Planning Patient requires placement. interstate planner continues to send out referrals. Request HC Surrog/Guard Advoc?: No Problem Qualifiers (1) Schizophrenia: Qualified Code: F20.0 - Paranoid schizophrenia Zach Valera MD Oct 07, 2016 12:44
[2016-10-07] MEDS: ACETAMINOPHEN 325 MG TAB PO PRN (15:30)
[2016-10-07 18:10] VITALS: BP 125/79; PULSE 75; RESP 18; TEMP 98.4; O2SAT 97
[2016-10-07] MEDS: diphenhydrAMINE HCL 50 MG CAP PO PRN (20:22)
[2016-10-07] MEDS: OLANZapine 10 MG TAB PO SCH (20:23)
[2016-10-07] MEDS: IBUPROFEN 400 MG TAB PO PRN (20:24)
[2016-10-07] MEDS: LORazepam 0.5 MG TAB age > 65 yrs PO PRN (20:26)
[2016-10-08 06:09] VITALS: BP 122/59; PULSE 55; RESP 16; TEMP 96.8; O2SAT 96
[2016-10-08] MEDS: FOLIC ACID 1 MG TAB PO SCH (09:25)
[2016-10-08] MEDS: THIAMINE HCL 100 MG TAB PO SCH (09:25)
[2016-10-08] MEDS: DIVALPROEX SODIUM DELAYED RELEASE 250 MG TAB PO SCH ×2 (09:25→20:32)
[2016-10-08] MEDS: IBUPROFEN 400 MG TAB PO PRN ×2 (09:25→20:32)
--- NOTE | 2016-10-08 11:15 | HHI.PYPN ---
Subjective Remarks Patient seen and examined with counselor. Chart reviewed. Case discussed with nursing staff. On my examination today, patient is calm and pleasant. He reports that his mood is improved. He remains a little bit disorganized. He complains of a headache overnight but says that this is now resolved. He has no other physical complaints. Denies side effects from medications. Review of Systems Except as stated in HPI: all other systems reviewed are Neg Objective Alert: Yes [place]: Person, Place Mood: Calm Affect: Blunted Memory Intact: Comment (not formally assessed) Hallucinations: Other (none) Delusions: No Delusion Type: Other (no delusions elicited) Suicidal: Ideation (no SI) Homicidal: Ideation (no HI) Insight/Judgment Poor Remarks No abnormal motor movements noted. Thought process somewhat disorganized. Speech little bit rambling. Labs Labs reviewed. Vitals/IOs Vital Signs Date Time Temp Pulse Resp B/P Pulse Ox O2 Delivery O2 Flow Rate FiO2 10/08/16 06:09 96.8 55 16 122/59 96 Assessment & Plan Problem List: (1) Schizophrenia ICD Code: F20.9 Assessment & Plan Continue Depakote and Zyprexa as ordered. Continue to monitor on the inpatient psychiatric unit. Continue other medications and care as ordered. Justification for Cont. Inpt. High risk for decompensation in a less restrictive environment. Discharge Planning Placement Request HC Surrog/Guard Advoc?: No Problem Qualifiers (1) Schizophrenia: Qualified Code: F20.0 - Paranoid schizophrenia Zach Valera MD Oct 08, 2016 11:15
[2016-10-08 17:03] VITALS: BP 130/78; PULSE 70; RESP 18; TEMP 97; O2SAT 98
[2016-10-08] MEDS: OLANZapine 10 MG TAB PO SCH (20:31)
[2016-10-09 06:10] VITALS: BP 99/61; PULSE 60; RESP 18; TEMP 98.2; O2SAT 100
[2016-10-09] MEDS: FOLIC ACID 1 MG TAB PO SCH (08:55)
[2016-10-09] MEDS: DIVALPROEX SODIUM DELAYED RELEASE 250 MG TAB PO SCH ×2 (08:55→20:45)
[2016-10-09] MEDS: THIAMINE HCL 100 MG TAB PO SCH (08:55)
--- NOTE | 2016-10-09 10:38 | HHI.PYPN ---
Subjective Remarks Patient seen and examined with counselor. Chart reviewed. Case discussed with nursing staff who reports patient is somewhat more verbal but remains fairly asocial. On my examination today, the patient feels that he is doing well. He says that he would like to get back to school after discharge. No SI/HI. Tolerating medications well without side effects. Review of Systems ROS Limitations: Poor Historian Except as stated in HPI: all other systems reviewed are Neg Objective Alert: Yes [place]: Person, Place Mood: Calm Affect: Blunted Memory Intact: Comment (Not assessed) Hallucinations: Other (No AVH) Delusions: No Delusion Type: Other (No delusions) Suicidal: Ideation (No SI) Homicidal: Ideation (No HI) Insight/Judgment Poor. Remarks No abnormal motor movements noted. Speech somewhat rambling. TP fairly linear today. Labs Labs reviewed. Vitals/IOs Vital Signs Date Time Temp Pulse Resp B/P Pulse Ox O2 Delivery O2 Flow Rate FiO2 10/09/16 06:10 98.2 60 18 99/61 100 Intake and Output 10/08/16 10/08/16 10/09/16 08:00 16:00 00:00 Intake Total 360 ml Balance 360 ml Assessment & Plan Problem List: (1) Schizophrenia ICD Code: F20.9 Assessment & Plan Continue Depakote and Zyprexa as ordered. Continue other medications as ordered. Continue other care as ordered. Justification for Cont. Inpt. High risk for decompensation in a less restrictive environment. Discharge Planning land planner continues to work on placement. Request HC Surrog/Guard Advoc?: No Problem Qualifiers (1) Schizophrenia: Qualified Code: F20.0 - Paranoid schizophrenia Zach Valera MD Oct 09, 2016 10:38
[2016-10-09 18:26] VITALS: BP 137/71; PULSE 81; RESP 18; TEMP 97.9; O2SAT 99
[2016-10-09] MEDS: OLANZapine 10 MG TAB PO SCH (20:45)
[2016-10-10 06:13] VITALS: BP 113/58; PULSE 58; RESP 18; TEMP 97.6; O2SAT 96
[2016-10-10] MEDS: FOLIC ACID 1 MG TAB PO SCH (09:04)
[2016-10-10] MEDS: THIAMINE HCL 100 MG TAB PO SCH (09:04)
[2016-10-10] MEDS: DIVALPROEX SODIUM DELAYED RELEASE 250 MG TAB PO SCH ×2 (09:04→21:35)
[2016-10-10 18:00] VITALS: BP 109/72; PULSE 85; RESP 18; TEMP 98.5; O2SAT 98
[2016-10-10] MEDS: OLANZapine 10 MG TAB PO SCH (21:00)
[2016-10-10] MEDS: IBUPROFEN 400 MG TAB PO PRN (21:36)
[2016-10-11 05:43] VITALS: BP 98/57; PULSE 53; RESP 19; TEMP 98.3; O2SAT 98
[2016-10-11] MEDS: THIAMINE HCL 100 MG TAB PO SCH (09:08)
[2016-10-11] MEDS: DIVALPROEX SODIUM DELAYED RELEASE 250 MG TAB PO SCH ×2 (09:08→21:10)
[2016-10-11] MEDS: FOLIC ACID 1 MG TAB PO SCH (09:08)
--- NOTE | 2016-10-11 16:25 | HHI.PYPN ---
Subjective Remarks Patient was seen and case discussed with nursing. Patient is perseverative on discharge however he believes that and filling out a [place] apple result in his discharge. Argumentative throughout the interview. He is disorganized with poor insight. Compliant with medications Objective Alert: Yes [place]: Person, Place Mood: Oppositional Affect: Restricted Memory Intact: Comment (Not assessed) Hallucinations: Other (No AVH) Delusions: No Delusion Type: Other (No delusions) Suicidal: Ideation (No SI) Homicidal: Ideation (No HI) Insight/Judgment Poor Vitals/IOs Vital Signs Date Time Temp Pulse Resp B/P Pulse Ox O2 Delivery O2 Flow Rate FiO2 10/11/16 05:43 98.3 53 19 98/57 98 Intake and Output 10/10/16 10/10/16 10/11/16 08:00 16:00 00:00 Intake Total 240 ml Balance 240 ml Assessment & Plan Problem List: (1) Schizophrenia ICD Code: F20.9 Assessment & Plan Continue current treatment plan Justification for Cont. Inpt. Patient will decompensate in a less restrictive setting Request HC Surrog/Guard Advoc?: No Problem Qualifiers (1) Schizophrenia: Qualified Code: F20.0 - Paranoid schizophrenia Carlos Lombardi DO Oct 11, 2016 16:25
[2016-10-11 18:18] VITALS: BP 117/67; PULSE 68; RESP 18; TEMP 98.3; O2SAT 97
[2016-10-11] MEDS: OLANZapine 10 MG TAB PO SCH (21:00)
[2016-10-11] MEDS: IBUPROFEN 400 MG TAB PO PRN (21:10)
[2016-10-12 06:00] VITALS: BP 119/69; PULSE 64; RESP 18; TEMP 97.8; O2SAT 98
[2016-10-12] MEDS: THIAMINE HCL 100 MG TAB PO SCH (09:00)
[2016-10-12] MEDS: FOLIC ACID 1 MG TAB PO SCH (09:32)
[2016-10-12] MEDS: DIVALPROEX SODIUM DELAYED RELEASE 250 MG TAB PO SCH ×2 (09:32→20:53)
[2016-10-12 15:27] VITALS: BP 112/56; PULSE 64; RESP 18; TEMP 98.5; O2SAT 98
--- NOTE | 2016-10-12 15:44 | HHI.PYPN ---
Subjective Remarks Patient was seen and case discussed with nursing. Patient is pleasant and cooperative with exam. Compliant with medications. Remains largely seclusive to self grossly disorganized. Continues to deny positive symptoms Objective Alert: Yes [place]: Person, Place Mood: Calm Affect: Blunted Memory Intact: Comment (Not assessed) Hallucinations: Other (No AVH) Delusions: No Delusion Type: Other (internally preoccupied) Suicidal: Ideation (No SI) Homicidal: Ideation (No HI) Insight/Judgment Poor Vitals/IOs Vital Signs Date Time Temp Pulse Resp B/P Pulse Ox O2 Delivery O2 Flow Rate FiO2 10/12/16 15:27 98.5 64 18 112/56 98 Assessment & Plan Problem List: (1) Schizophrenia ICD Code: F20.9 Assessment & Plan Continue current treatment plan Justification for Cont. Inpt. Patient will decompensate in a less restrictive setting Request HC Surrog/Guard Advoc?: No Problem Qualifiers (1) Schizophrenia: Qualified Code: F20.0 - Paranoid schizophrenia Carlos Lombardi DO Oct 12, 2016 15:44
[2016-10-12] MEDS: diphenhydrAMINE HCL 50 MG CAP PO PRN (20:53)
[2016-10-12] MEDS: OLANZapine 10 MG TAB PO SCH (20:53)
[2016-10-12] MEDS: ACETAMINOPHEN 325 MG TAB PO PRN (20:54)
[2016-10-13 06:25] VITALS: BP 111/64; PULSE 65; RESP 17; TEMP 97.1; O2SAT 100
[2016-10-13] MEDS: THIAMINE HCL 100 MG TAB PO SCH (09:00)
[2016-10-13] MEDS: DIVALPROEX SODIUM DELAYED RELEASE 250 MG TAB PO SCH ×2 (09:00→20:40)
[2016-10-13] MEDS: FOLIC ACID 1 MG TAB PO SCH (09:00)
[2016-10-13] MEDS: IBUPROFEN 400 MG TAB PO PRN (09:48)
--- NOTE | 2016-10-13 11:30 | HHI.PYPN ---
Subjective Remarks Patient seen and examined with counselor and nurse. Chart reviewed. Case discussed with nurse who reports patient has been a behavioral problem. On my examination today, the patient is calm and pleasant. He feels that his psychotropics are working well. Counselor has tried to contact patient's family without success. The patient suggests that we might reach out to his case specialist at [facility] by the name of Donald. Denies side effects from medications. No physical complaints. Remains resistant to assisted living placement. Review of Systems ROS Limitations: Poor Historian Except as stated in HPI: all other systems reviewed are Neg Objective Alert: Yes [place]: Person, Place Mood: Calm Affect: Blunted Memory Intact: Comment (not formally assessed today) Hallucinations: Other (No AVH) Delusions: No Delusion Type: Other (remains internally preoccupied) Suicidal: Ideation (No SI) Homicidal: Ideation (No HI) Insight/Judgment Poor Remarks No abnormal motor movements noted. Labs Labs reviewed. No new labs. Vitals/IOs Vital Signs Date Time Temp Pulse Resp B/P Pulse Ox O2 Delivery O2 Flow Rate FiO2 10/13/16 06:25 97.1 65 17 111/64 100 Assessment & Plan Problem List: (1) Schizophrenia ICD Code: F20.9 Assessment & Plan Continue current psychotropics as ordered. Continue to monitor on the high acuity unit. Continue other medications and care as ordered. Justification for Cont. Inpt. High risk for decompensation in a less restrictive environment. Discharge Planning Counselor reports that efforts at assisted living placement have up till now been unsuccessful. Unclear if there is a facility that would accept this gentleman. I will initiate a [facility] referral as I remained convinced that he is unable to manage his affairs independently and social supports seem to be lacking. Request HC Surrog/Guard Advoc?: No Problem Qualifiers (1) Schizophrenia: Qualified Code: F20.0 - Paranoid schizophrenia Zach Valera MD Oct 13, 2016 11:30
[2016-10-13 18:24] VITALS: BP 133/72; PULSE 67; RESP 18; TEMP 97.3; O2SAT 98
[2016-10-13] MEDS: diphenhydrAMINE HCL 50 MG CAP PO PRN (20:40)
[2016-10-13] MEDS: OLANZapine 10 MG TAB PO SCH (20:40)
[2016-10-14 06:00] VITALS: BP 85/47; PULSE 58; RESP 18; TEMP 97.7; O2SAT 97
[2016-10-14] MEDS: DIVALPROEX SODIUM DELAYED RELEASE 250 MG TAB PO SCH ×2 (09:25→20:04)
[2016-10-14] MEDS: THIAMINE HCL 100 MG TAB PO SCH (09:25)
[2016-10-14] MEDS: FOLIC ACID 1 MG TAB PO SCH (09:25)
[2016-10-14] MEDS: IBUPROFEN 400 MG TAB PO PRN (09:26)
--- NOTE | 2016-10-14 14:24 | HHI.PYPN ---
Subjective Remarks Patient seen and examined with counselor and nurse. Chart reviewed. Case discussed with nursing staff, counselor and occupational therapist in treatment team. Per nursing staff, patient has been no behavioral problem. Occupational therapist notes that the patient participates well in groups that involve food. Counselor informs me that the patient has been accepted at [facility] [place] pending completion of needed paperwork. On my examination today, the patient is calm and pleasant. He is agreeable to going to [facility]. No SI, HI or AVH. Denies any side effects from medications. No other issues noted. Review of Systems ROS Limitations: Poor Historian Except as stated in HPI: all other systems reviewed are Neg Objective Alert: Yes [place]: Person, Place Mood: Calm Affect: Appropriate Memory Intact: Comment (not formally assessed today) Hallucinations: Other (No AVH) Delusions: No Delusion Type: Other (no stephanie delusional material) Suicidal: Ideation (No SI) Homicidal: Ideation (No HI) Insight/Judgment Poor Remarks No abnormal motor movements noted. Labs Labs reviewed. No new labs. Vitals/IOs Vital Signs Date Time Temp Pulse Resp B/P Pulse Ox O2 Delivery O2 Flow Rate FiO2 10/14/16 06:00 97.7 58 18 85/47 97 BP low but within historical range. Assessment & Plan Problem List: (1) Schizophrenia ICD Code: F20.9 Assessment & Plan Continue current psychotropics as ordered. Encourage fluids. Recheck vital signs. Continue to monitor on the high acuity unit. Continue other medications and care as ordered. Justification for Cont. Inpt. Final discharge planning Discharge Planning Discharge to assisted living facility once a bed is available, anticipate before the end of the week. Request HC Surrog/Guard Advoc?: No Problem Qualifiers (1) Schizophrenia: Qualified Code: F20.0 - Paranoid schizophrenia Zach Valera MD Oct 14, 2016 14:24
[2016-10-14 14:26] VITALS: BP 126/62; PULSE 71
[2016-10-14 17:49] VITALS: BP 120/58; PULSE 84; RESP 18; TEMP 98.4; O2SAT 98
[2016-10-14] MEDS: OLANZapine 10 MG TAB PO SCH (20:03)
[2016-10-14] MEDS: diphenhydrAMINE HCL 50 MG CAP PO PRN (20:03)
[2016-10-15 06:03] VITALS: BP 98/58; PULSE 57; RESP 18; TEMP 97.6; O2SAT 95
[2016-10-15] MEDS: DIVALPROEX SODIUM DELAYED RELEASE 250 MG TAB PO SCH ×2 (09:00→20:12)
[2016-10-15] MEDS: FOLIC ACID 1 MG TAB PO SCH (09:04)
[2016-10-15] MEDS: THIAMINE HCL 100 MG TAB PO SCH (09:04)
[2016-10-15] MEDS: LORazepam 0.5 MG TAB age > 65 yrs PO PRN ×2 (09:05→20:12)
--- NOTE | 2016-10-15 12:08 | HHI.PYPN ---
Subjective Remarks Patient seen and examined with counselor and nurse. Chart reviewed. Case discussed with nursing staff. No behavioral issues noted. On my examination today, the patient is calm and in good behavioral control. He remains agreeable to assisted living placement, and the counselor continues to process the necessary paperwork. No SI or HI. Denies any side effects from medications. Review of Systems ROS Limitations: Poor Historian Except as stated in HPI: all other systems reviewed are Neg Objective Alert: Yes [place]: Person, Place Mood: Calm Affect: Appropriate Memory Intact: Comment (not formally assessed) Hallucinations: Other (No AVH) Delusions: No Delusion Type: Other (no delusions) Suicidal: Ideation (No SI) Homicidal: Ideation (No HI) Insight/Judgment Poor Remarks No new motor abnormalities noted Labs Labs reviewed. Vitals/IOs Vital Signs Date Time Temp Pulse Resp B/P Pulse Ox O2 Delivery O2 Flow Rate FiO2 10/15/16 06:03 97.6 57 18 98/58 95 Assessment & Plan Problem List: (1) Schizophrenia ICD Code: F20.9 Assessment & Plan Continue Depakote and Zyprexa as ordered. Continue to monitor on the high acuity unit. Continue other medications and care as ordered. Justification for Cont. Inpt. High risk for decompensation in a restrictive environment/final discharge planning Discharge Planning Anticipate discharge within the next few days to assisted living Request HC Surrog/Guard Advoc?: No Problem Qualifiers (1) Schizophrenia: Qualified Code: F20.0 - Paranoid schizophrenia Zach Valera MD Oct 15, 2016 12:08
[2016-10-15 18:20] VITALS: PULSE 91
[2016-10-15 18:49] VITALS: BP 134/71; PULSE 120; RESP 18; TEMP 98.5; O2SAT 96
[2016-10-15] MEDS: OLANZapine 10 MG TAB PO SCH (20:12)
[2016-10-16 05:41] VITALS: BP 123/68; PULSE 64; RESP 17; TEMP 98.1; O2SAT 96
[2016-10-16] MEDS: DIVALPROEX SODIUM DELAYED RELEASE 250 MG TAB PO SCH ×2 (09:25→20:31)
[2016-10-16] MEDS: FOLIC ACID 1 MG TAB PO SCH (09:25)
[2016-10-16] MEDS: THIAMINE HCL 100 MG TAB PO SCH (09:25)
--- NOTE | 2016-10-16 10:52 | HHI.PYPN ---
Subjective Remarks Patient seen and examined with counselor. Chart reviewed. Case discussed with nursing staff who reports patient has not been any behavioral problem on the unit. On my examination today, the patient remains calm and cooperative. He remains agreeable to assisted living placement and is eager for discharge. No SI or HI. No side effects from medications. Review of Systems ROS Limitations: Poor Historian Except as stated in HPI: all other systems reviewed are Neg Objective Alert: Yes [place]: Person, Place Mood: Calm Affect: Appropriate Memory Intact: Comment (not assessed) Hallucinations: Other (none) Delusions: No Delusion Type: Other (no delusions) Suicidal: Ideation (no suicidal ideation) Homicidal: Ideation (no homicidal ideation) Insight/Judgment Poor Remarks No motor abnormalities noted Labs Labs reviewed. Vitals/IOs Vital Signs Date Time Temp Pulse Resp B/P Pulse Ox O2 Delivery O2 Flow Rate FiO2 10/16/16 05:41 98.1 64 17 123/68 96 Intake and Output 10/15/16 10/15/16 10/16/16 08:00 16:00 00:00 Intake Total 720 ml Balance 720 ml Assessment & Plan Problem List: (1) Schizophrenia ICD Code: F20.9 Assessment & Plan Continue Depakote and Zyprexa as ordered. Check an updated set of basic laboratories. Continue to monitor on the inpatient psychiatric unit. Continue other medications and care as ordered. Justification for Cont. Inpt. High risk for decompensation in a less restrictive environment Discharge Planning Plan is for placement, hopefully within the next week. Request HC Surrog/Guard Advoc?: No Problem Qualifiers (1) Schizophrenia: Qualified Code: F20.0 - Paranoid schizophrenia Zach Valera MD Oct 16, 2016 10:52
[2016-10-16 19:00] VITALS: BP 124/69; PULSE 97; RESP 16; TEMP 97.7; O2SAT 97
[2016-10-16] MEDS: OLANZapine 10 MG TAB PO SCH (20:32)
[2016-10-16] MEDS: ACETAMINOPHEN 325 MG TAB PO PRN (22:01)
[2016-10-17 05:32] VITALS: BP 118/60; PULSE 71; RESP 18; TEMP 97.8; O2SAT 95
[2016-10-17] MEDS: DIVALPROEX SODIUM DELAYED RELEASE 250 MG TAB PO SCH ×2 (08:31→20:57)
[2016-10-17] MEDS: THIAMINE HCL 100 MG TAB PO SCH (08:31)
[2016-10-17] MEDS: FOLIC ACID 1 MG TAB PO SCH (08:31)
--- NOTE | 2016-10-17 11:33 | HHI.PYPN ---
Subjective Remarks Patient seen and examined with counselor and nurse. Chart reviewed. Case discussed with nursing staff. No behavioral issues noted. On my examination today, patient is in good spirits. He is calm and cooperative with exam. No SI or HI voiced. Hopeful for discharge to a facility soon. Denies side effects from medications. Review of Systems ROS Limitations: Poor Historian Except as stated in HPI: all other systems reviewed are Neg Objective Alert: Yes [place]: Person, Place Mood: Calm Affect: Appropriate Memory Intact: Comment (not assessed) Hallucinations: Other (no AVH) Delusions: No Delusion Type: Other (no delusional material) Suicidal: Ideation (no SI) Homicidal: Ideation (no HI) Insight/Judgment Poor Remarks Thought process remains a little disorganized. Speech somewhat rambling. Labs Labs reviewed. Vitals/IOs Vital Signs Date Time Temp Pulse Resp B/P Pulse Ox O2 Delivery O2 Flow Rate FiO2 10/17/16 05:32 97.8 71 18 118/60 95 Assessment & Plan Problem List: (1) Schizophrenia ICD Code: F20.9 Assessment & Plan Continue current psychotropics as ordered. Continue to monitor on the inpatient unit. Continue other medications and care as ordered. Justification for Cont. Inpt. Discharge planning Discharge Planning [facility] Request HC Surrog/Guard Advoc?: No Problem Qualifiers (1) Schizophrenia: Qualified Code: F20.0 - Paranoid schizophrenia Zach Valera MD Oct 17, 2016 11:33
[2016-10-17 17:49] VITALS: BP 123/73; PULSE 81; RESP 16; TEMP 97.5; O2SAT 99
[2016-10-17] MEDS: ACETAMINOPHEN 325 MG TAB PO PRN (19:12)
[2016-10-17] MEDS: OLANZapine 10 MG TAB PO SCH (20:58)
[2016-10-18 05:26] VITALS: BP 126/61; PULSE 74; RESP 18; TEMP 97.3; O2SAT 96
[2016-10-18] MEDS: DIVALPROEX SODIUM DELAYED RELEASE 250 MG TAB PO SCH ×2 (08:54→21:06)
[2016-10-18] MEDS: FOLIC ACID 1 MG TAB PO SCH (08:55)
[2016-10-18] MEDS: THIAMINE HCL 100 MG TAB PO SCH (08:55)
[2016-10-18 12:22] LABS: AUTOMATED NEUTROPHIL # 2.4 TH/MM3 (1.8-7.7); BASOPHIL % 0.7 % (0.0-2.0); EOSINOPHIL # 0.3 TH/MM3 (0-0.4); HEMATOCRIT 39.7 % (39.0-51.0); HEMO FLAGS DIFF FINAL; LYMPHOCYTE # 2.1 TH/MM3 (1.0-4.8); MEAN CELL VOLUME 92.8 FL (80.0-100.0); MEAN CORPUSCULAR HGB CONC 33.4 % (32.0-36.0); MONO % 14.5 % (0.0-8.0); NEUT % 42.8 % (16.0-70.0); PLATELET COUNT 208 TH/MM3 (150-450); RED BLOOD COUNT 4.27 MIL/MM3 (4.50-5.90); RED CELL DISTRIBUTION WIDTH 14.4 % (11.6-17.2); WHITE BLOOD COUNT 5.7 TH/MM3 (4.0-11.0)
[2016-10-18 12:37] LABS: ALKALINE PHOSPHATASE 80 U/L (45-117); ALT (GPT) 21 U/L (12-78); ANION GAP 7 MEQ/L (5-15); AST (GOT) 14 U/L (15-37); BICARBONATE 27.3 MEQ/L (21.0-32.0); BLOOD UREA NITROGEN 19 MG/DL (7-18); CHLORIDE 105 MEQ/L (98-107); GLOMERULAR FILTRATION RATE 96 ML/MIN (>89); POTASSIUM 4.5 MEQ/L (3.5-5.1); SODIUM (NA) 139 MEQ/L (136-145); TOTAL BILIRUBIN ADULT 0.2 MG/DL (0.2-1.0)
--- NOTE | 2016-10-18 13:51 | HHI.PYPN ---
Subjective Remarks Pt seen and discussed with staff. He is compliant with medications and care. He reports that his medications are "excellent" and denies side effects. No agitation or behavioral problems on unit. No SI/HI. Objective Alert: Yes [place]: Person, Place Mood: Calm Affect: Appropriate Memory Intact: Comment (fair) Hallucinations: Other (no AVH) Delusions: No Delusion Type: Other (no delusional material) Suicidal: Ideation (no SI) Homicidal: Ideation (no HI) Insight/Judgment poor Labs Test 10/18/16 10:54 White Blood Count 5.7 TH/MM3 Red Blood Count 4.27 MIL/MM3 Hemoglobin 13.2 GM/DL Hematocrit 39.7 % Mean Corpuscular Volume 92.8 FL Mean Corpuscular Hemoglobin 31.0 PG Mean Corpuscular Hemoglobin 33.4 % Concent Red Cell Distribution Width 14.4 % Platelet Count 208 TH/MM3 Mean Platelet Volume 8.5 FL Neutrophils (%) (Auto) 42.8 % Lymphocytes (%) (Auto) 37.0 % Monocytes (%) (Auto) 14.5 % Eosinophils (%) (Auto) 5.0 % Basophils (%) (Auto) 0.7 % Neutrophils # (Auto) 2.4 TH/MM3 Lymphocytes # (Auto) 2.1 TH/MM3 Monocytes # (Auto) 0.8 TH/MM3 Eosinophils # (Auto) 0.3 TH/MM3 Basophils # (Auto) 0.0 TH/MM3 CBC Comment DIFF FINAL Differential Comment Sodium Level 139 MEQ/L Potassium Level 4.5 MEQ/L Chloride Level 105 MEQ/L Carbon Dioxide Level 27.3 MEQ/L Anion Gap 7 MEQ/L Blood Urea Nitrogen 19 MG/DL Creatinine 0.98 MG/DL Estimat Glomerular Filtration 96 ML/MIN Rate Random Glucose 92 MG/DL Calcium Level 8.6 MG/DL Total Bilirubin 0.2 MG/DL Aspartate Amino Transf 14 U/L (AST/SGOT) Alanine Aminotransferase 21 U/L (ALT/SGPT) Alkaline Phosphatase 80 U/L Total Protein 7.0 GM/DL Albumin 3.2 GM/DL Vitals/IOs Vital Signs Date Time Temp Pulse Resp B/P Pulse Ox O2 Delivery O2 Flow Rate FiO2 10/18/16 05:26 97.3 74 18 126/61 96 Intake and Output 10/17/16 10/17/16 10/18/16 08:00 16:00 00:00 Intake Total 0 ml Balance 0 ml Assessment & Plan Problem List: (1) Schizophrenia ICD Code: F20.9 Assessment & Plan Continue current tx plan. Estimated LOS: days Justification for Cont. Inpt. risk of decompensation Request HC Surrog/Guard Advoc?: No Problem Qualifiers (1) Schizophrenia: Qualified Code: F20.0 - Paranoid schizophrenia Parul Erazo MD Oct 18, 2016 13:51
[2016-10-18 18:25] VITALS: BP 119/67; PULSE 79; RESP 18; TEMP 98.2; O2SAT 95
[2016-10-18] MEDS: OLANZapine 10 MG TAB PO SCH (21:00)
[2016-10-19 05:41] VITALS: BP 106/67; PULSE 82; RESP 18; TEMP 98.6; O2SAT 96
[2016-10-19] MEDS: THIAMINE HCL 100 MG TAB PO SCH (08:31)
[2016-10-19] MEDS: FOLIC ACID 1 MG TAB PO SCH (08:31)
[2016-10-19] MEDS: DIVALPROEX SODIUM DELAYED RELEASE 250 MG TAB PO SCH ×2 (08:31→20:28)
--- NOTE | 2016-10-19 15:28 | HHI.PYPN ---
Subjective Remarks Pt seen and discussed with staff. He is compliant with medications and denies side effects. He describes his mood as "advantageous" and reports that he is having a good day. No SI/HI. Objective Alert: Yes [place]: Person, Place Mood: Calm Affect: Appropriate Memory Intact: Comment (fair) Hallucinations: Other (no AVH) Delusions: No Delusion Type: Other (no delusional material) Suicidal: Ideation (no SI) Homicidal: Ideation (no HI) Insight/Judgment poor Vitals/IOs Vital Signs Date Time Temp Pulse Resp B/P Pulse Ox O2 Delivery O2 Flow Rate FiO2 10/19/16 05:41 98.6 82 18 106/67 96 Assessment & Plan Problem List: (1) Schizophrenia ICD Code: F20.9 Assessment & Plan Continue current tx plan +Estimated LOS: days Justification for Cont. Inpt. risk of decompensation Request HC Surrog/Guard Advoc?: No Problem Qualifiers (1) Schizophrenia: Qualified Code: F20.0 - Paranoid schizophrenia Parul Erazo MD Oct 19, 2016 15:28
[2016-10-19 18:02] VITALS: BP 130/57; PULSE 84; RESP 18; TEMP 97.9; O2SAT 99
[2016-10-19] MEDS: OLANZapine 10 MG TAB PO SCH (20:28)
[2016-10-19] MEDS: diphenhydrAMINE HCL 50 MG CAP PO PRN (20:28)
[2016-10-20 06:22] VITALS: BP 96/55; PULSE 60; RESP 18; TEMP 98; O2SAT 97
[2016-10-20] MEDS: DIVALPROEX SODIUM DELAYED RELEASE 250 MG TAB PO SCH ×2 (09:00→20:35)
[2016-10-20] MEDS: FOLIC ACID 1 MG TAB PO SCH (09:00)
[2016-10-20] MEDS: THIAMINE HCL 100 MG TAB PO SCH (09:00)
--- NOTE | 2016-10-20 10:47 | HHI.PYPN ---
Subjective Remarks Patient seen and examined with counselor. Chart reviewed. Case discussed with nursing staff who reports patient has been masturbating in his room but otherwise has been no behavioral problem. On my examination today, the patient is in good spirits. He denies any suicidal or homicidal ideation. He is eager for discharge soon. Counselor informs me that the patient may go to assisted living facility tomorrow, Thursday. Denies side effects from medications. Review of Systems ROS Limitations: Poor Historian Except as stated in HPI: all other systems reviewed are Neg Objective Alert: Yes [place]: Person, Place Mood: Calm Affect: Appropriate Memory Intact: Comment (remains fair) Hallucinations: Other (no AVH) Delusions: No Delusion Type: Other (no delusions) Suicidal: Ideation (no SI) Homicidal: Ideation (no HI) Insight/Judgment Poor Remarks No motor abnormalities noted Labs Labs reviewed Vitals/IOs Vital Signs Date Time Temp Pulse Resp B/P Pulse Ox O2 Delivery O2 Flow Rate FiO2 10/20/16 06:22 98.0 60 18 96/55 97 Assessment & Plan Problem List: (1) Schizophrenia ICD Code: F20.9 Assessment & Plan Continue current psychotropics as ordered. Continue other medications and care as ordered. Justification for Cont. Inpt. Final discharge planning Discharge Planning Anticipate discharge to assisted living facility tomorr, Thursday Request HC Surrog/Guard Advoc?: No Problem Qualifiers (1) Schizophrenia: Qualified Code: F20.0 - Paranoid schizophrenia Zach Valera MD October 20, 2016 10:47
--- NOTE | 2016-10-20 12:20 | HHI.PYPN ---
Subjective Remarks This is the psychiatric progress note for 10/10/2016. Patient remains psychotic with paranoid ideation. He remains socially reclusive. He does not wish to have a conversation with this physician. He does appear to be tolerating his medications. Review of Systems ROS Limitations: Clinical Condition Objective Alert: Yes [place]: Person, Place Mood: Calm Affect: Appropriate Memory Intact: Comment (fair) Hallucinations: Other (no AVH) Delusions: No Delusion Type: Other (no delusional material) Suicidal: Ideation (no SI) Homicidal: Ideation (no HI) Insight/Judgment Impaired Vitals/IOs Vital Signs Date Time Temp Pulse Resp B/P Pulse Ox O2 Delivery O2 Flow Rate FiO2 10/20/16 06:22 98.0 60 18 96/55 97 Assessment & Plan Problem List: (1) Schizophrenia ICD Code: F20.9 Assessment & Plan Estimated LOS: 7 days patient needs more time on antipsychotic medication to respond. Justification for Cont. Inpt. Patient likely to decompensate at lower level of care. Request HC Surrog/Guard Advoc?: No Problem Qualifiers (1) Schizophrenia: Qualified Code: F20.0 - Paranoid schizophrenia Josue Moore MD October 20, 2016 12:20
[2016-10-20 17:27] VITALS: BP 105/61; PULSE 81; RESP 18; TEMP 98.3; O2SAT 98
[2016-10-20] MEDS: OLANZapine 10 MG TAB PO SCH (20:35)
[2016-10-20] MEDS: IBUPROFEN 400 MG TAB PO PRN (20:37)
[2016-10-21 05:53] VITALS: BP 111/59; PULSE 63; RESP 17; TEMP 97.4; O2SAT 100
[2016-10-21] MEDS: FOLIC ACID 1 MG TAB PO SCH (09:33)
[2016-10-21] MEDS: THIAMINE HCL 100 MG TAB PO SCH (09:34)
[2016-10-21] MEDS: DIVALPROEX SODIUM DELAYED RELEASE 250 MG TAB PO SCH (09:34)
[2016-10-21] MEDS ORDERED: DIVA250T PO (09:41)
[2016-10-21] MEDS ORDERED: OLAN10TA PO (09:41)
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
== END 2016-10-21 13:10 | DRG 885 ==
LOC: NEPA 16:55 → NEDA 08-26 03:40 → H260 08-26 05:10 → H270 08-26 20:05
PROVIDERS: ADMIT Psychiatry & Neurology Psychiatry; ATTEND Psychiatry & Neurology Psychiatry
DX: F20.0 Paranoid schizophrenia (principal); Z91.14 Patient's other noncompliance with medication regimen; K02.9 Dental caries, unspecified; H92.01 Otalgia, right ear; L84 Corns and callosities; F17.210 Nicotine dependence, cigarettes, uncomplicated; Z75.1 Person awaiting admission to adequate facility elsewhere
CPT/HCPCS: 80048; 80053; 80061; 80164; 80307; 82140; 83036; 83735; 85025; 93005; 99285; J2794; Q0163